=== PATIENT | male | born 1955 | race Caucasian/White ===

== ENCOUNTER 2016-10-29 19:42 | Emergency (ER) | payer OTHER ==
[~2016-10-29] VITALS: Ht 162.6 cm; Wt 100.0 kg
[~2016-10-29 19:42] MED LIST: ASPI-664 PO; ATOR80TA75 PO; CEPH500C PO; FENO160T13 PO; GABA300C PO; HYDR-3498 PO; ISOS60TA PO; Isosorbide Mononitrate PO; LISI-523 PO; METO10TA92 PO; METO50TA16 PO; RANO10002 PO
[2016-10-29 19:50] VITALS: Ht 162.6 cm; Wt 100.0 kg
--- NOTE | 2016-10-29 22:56 | ERD ---
ER Documentation Chief Complaint Date/Time DATE: 10/29/16 TIME: 22:42 Chief Complaint left leg pain x 2 days. 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 Patient denies any injury or trauma. He rates the pain at a 10 out of 10 constant throbbing pain. He states the pain is worse when bearing weight. He otherwise is able to ambulate well. He is currently on aspirin and clopidogrel. Patient denies any redness, fever, chest pain, shortness of breath , or dizziness. He denies any history of diabetes or high blood pressure. ROS All systems reviewed and are negative except as per history of present illness. Medications Home Meds Active Scripts Hydrocodone Bit-Acetaminophen* ([place]*) 5-325 Mg Tab, 1 TAB PO Q8 Y for SEVERE PAIN LEVEL 7-10, #30 TAB Prov:ALBERTO SMALLS MD 04/27/16 Cephalexin* (Cephalexin*) 500 Mg Capsule, 500 MG PO TID, #21 CAP Prov:ALBERTO SMALLS MD 04/27/16 Metoclopramide* (Reglan*) 10 Mg Tablet, 10 MG PO AC MEALS Y for NAUSEA AND OR VOMITING, #40 TAB Prov:ALBERTO SMALLS MD 12/11/15 Metoprolol Succinate* (Toprol XL*) 50 Mg Tabsr, 50 MG PO BID for 28 Days, BOT Prov:KARL SHARIF MD 11/08/15 Lisinopril* (Zestril*) 5 Mg Tab, 2.5 MG PO DAILY for 28 Days, TAB Prov:KARL SHARIF MD 11/08/15 Gabapentin* (Neurontin*) 300 Mg Cap, 300 MG PO BID for 28 Days, CAP Prov:KARL SHARIF MD 11/08/15 [Isosorbide Mononitrate] 60 MG TABSR No Conflict Check, 60 MG PO DAILY, TAB Prov:KARL SHARIF MD 09/12/15 Reported Medications Fenofibrate, Micronized* (Fenofibrate*) 160 Mg Tablet, 160 MG PO DAILY, TAB 08/19/15 Isosorbide Mononitrate* (Isosorbide Mononitrate*) 60 Mg Tab.er.24h, 60 MG PO DAILY, TAB 08/19/15 Atorvastatin* (Atorvastatin*) 80 Mg Tablet, 80 MG PO HS, TAB 08/19/15 Ranolazine* (Ranexa*) 1,000 Mg Tab.sr.12h, 1000 MG PO BID 11/11/12 Aspirin (Aspirin) 81 Mg Tablet.dr, 81 MG PO DAILY 11/11/12 Allergies Allergies: Coded Allergies: No Known Allergies (Verified Allergy, Unknown, 10/29/16) PMhx/Soc History of Surgery: Yes (s/p LLE popliteal aneurysm repair of profunda to anterior tibial) Anesthesia Reaction: No Hx Neurological Disorder: No Hx Respiratory Disorders: No Hx Cardiac Disorders: Yes (HTN, HIGH AB, pacemaker) Hx Psychiatric Problems: No Hx Miscellaneous Medical Probl: Yes (HTN, Hypercholesterolemia, PVD, ) Hx Alcohol Use: Yes Hx Substance Use: No Hx Tobacco Use: Yes Smoking Status: Current every day smoker Physical Exam Vitals Vital Signs Date Time Temp Pulse Resp B/P Pulse Ox O2 Delivery O2 Flow Rate FiO2 10/29/16 19:50 98.8 69 20 2/76 99 Physical Exam Const: Head: Atraumatic Eyes: Normal Conjunctiva ENT: Normal External Ears, Nose and Mouth. Neck: Full range of motion..~ No meningismus. Resp: Clear to auscultation bilaterally Cardio: Regular rate and rhythm, no murmurs Abd: Soft, non tender, non distended. Normal bowel sounds Skin: No petechiae or rashes Back: No midline or flank tenderness Ext: No cyanosis, or edema Neur: Awake and alert Psych: Normal Mood and Affect Result Diagram: 10/29/16225410/29/162254 Results 24 hrs Laboratory Tests Test 10/29/16 22:55 Activated Partial Thromboplast Time 27.4Sec Alanine Aminotransferase (ALT/SGPT) 23IU/L Albumin 4.9g/dl Albumin/Globulin Ratio 1.36 Alkaline Phosphatase 80IU/L Anion Gap 22 Aspartate Amino Transf (AST/SGOT) 22IU/L Basophils # 0.010^3/ul Basophils % 0.2% Blood Urea Nitrogen 18mg/dl Calcium Level 10.0mg/dl Carbon Dioxide Level 25mmol/L Chloride Level 102mmol/L Creatinine 1.09mg/dl Direct Bilirubin 0.00mg/dl Eosinophils # 0.110^3/ul Eosinophils % 0.8% Globulin 3.60g/dl Glucose Level 96mg/dl Hematocrit 40.6% Hemoglobin 13.6g/dl INR International Normalized Ratio 0.97 Indirect Bilirubin 0.3mg/dl Lymphocytes # 3.010^3/ul Lymphocytes % 26.3% Mean Corpuscular Hemoglobin 31.5pg Mean Corpuscular Hemoglobin Concent 33.6g/dl Mean Corpuscular Volume 93.7fl Mean Platelet Volume 7.7fl Monocytes # 0.910^3/ul Monocytes % 7.7% Neutrophils # 7.410^3/ul Neutrophils % 65.0% Nucleated Red Blood Cells # 0.010^3/ul Nucleated Red Blood Cells % 0.0/100WBC Platelet Count 27457^3/UL Potassium Level 4.2mmol/L Prothrombin Time 12.9Sec Prothrombin Time Ratio 1.0 Red Blood Count 4.3310^6/ul Red Cell Distribution Width 13.3% Sodium Level 145mmol/L Total Bilirubin 0.3mg/dl Total Protein 8.5g/dl Troponin I Pending White Blood Count 11.410^3/ul Current Medications Medications (Trade) Dose Ordered Sig/Scotty Route PRN Reason Start Time Stop Time Status Last Admin Dose Admin Acetaminophen/ Hydrocodone Bitart ([place] (10/325)) 1 tab ONCE ONCE PO 10/29/16 23:00 10/29/16 23:01 DC Procedures/MDM PROCEDURE: Ultrasound examination of the left lower extremity with Doppler. CLINICAL INDICATION: Left leg pain and swelling. TECHNIQUE: Multiple sonographic images of the left lower extremity veins were performed with alegre scale and color Doppler. COMPARISON: None. FINDINGS: The left common femoral, superficial femoral and popliteal veins demonstrate normal color flow, waveforms, compression and response to augmentation. There is no evidence of deep venous thrombosis. There is a complex, heterogeneous echogenicity surrounding the left popliteal vein graft measuring 5.2 x 3.1 x 5.0 cm with no vascularity demonstrated. IMPRESSION: No evidence of deep venous thrombosis within the left lower extremity. Hematoma surrounding the left popliteal graft measuring 5.2 x 3.1 x 5.0 cm. .Kofi Vargas MD, MD Date Time Electronically viewed and signed by .Kofi Vargas MD, MD on 10/29/2016 23:19 .T/ CC: MORENO LIMA PA-C 61-year-old male with extensive DVT history presents the emergency department with concern for left lower extremity pain. Ultrasound revealed evidence of a popliteal hematoma and no evidence of acute DVT. I recommended further diagnostic imaging including a CTA of the lower extremity although patient refused further testing and stated that he is being closely monitored by his vascular surgeon and recently received a CAT scan of the lower extremity which revealed the hematoma. Patient and family as well as surgeon are aware of this popliteal hematoma but stated they wanted to make sure he did not develop any new DVT. CBC unremarkable for anemia or leukocytosis. Patient instructed to follow-up with his vascular surgeon within the next week or return to the emergency department if he continues to have worsening pain, chest pain, shortness of breath, or calf redness. Patient supplied with a short course of [place] for pain control. Patient to continue clopidogrel as prescribed by his vascular surgeon. Based on patient's history of present illness and physical examination the decision was made to discharge. The patient was re-evaluated after ED treatment and stabilizing measures, and symptoms have improved. There is no evidence of life threatening injuries or illnesses at this time. On re-examination, patient resting in no distress, stable vital signs, reports feeling better and safe for discharge with outpatient follow up with PMD in 1-2 days. Patient given return precautions. MORENO LIMA PA-C Oct 29, 2016 22:56
[2016-10-29] MEDS ORDERED: HYDROCODONE/APAP (10/325) TAB PO ONE (23:00)
[2016-10-29 23:03] LABS: BASOPHILS % 0.2 % (0.0-2.0); EOSINOPHILS # 0.1 10^3/ul (0.0-0.5); EOSINOPHILS % 0.8 % (0.0-7.0); HEMATOCRIT 40.6 % (42.0-52.0); HEMOGLOBIN 13.6 g/dl (14.0-18.0); LYMPHOCYTES % 26.3 % (15.0-51.0); MEAN CORPUSCULAR HEMOGLOBIN 31.5 pg (29.0-33.0); MEAN CORPUSCULAR HGB CONC 33.6 g/dl (32.0-37.0); MEAN CORPUSCULAR VOLUME 93.7 fl (82.0-101.0); MEAN PLATELET VOLUME 7.7 fl (7.4-10.4); MONOCYTE # 0.9 10^3/ul (0.3-0.9); MONOCYTES % 7.7 % (0.0-11.0); NEUTROPHIL # 7.4 10^3/ul (1.6-7.5); PLATELET COUNT 341 10^3/UL (140-440); RED BLOOD COUNT 4.33 10^6/ul (4.70-6.10); RED CELL DISTRIBUTION WIDTH 13.3 % (11.5-14.5); UNCORRECTED WBC 11.4 10^3/ul (4.8-10.8); WHITE BLOOD COUNT 11.4 10^3/ul (4.8-10.8)
[2016-10-29 23:05] LABS: CONDITION 1
[2016-10-29 23:14] LABS: INR 0.97; PROTIME 12.9 Sec (12.2-14.2)
[2016-10-29 23:15] LABS: ALBUMIN 4.9 g/dl (3.3-4.9); CHLORIDE 102 mmol/L (97-110); PARTIAL THROMBOPLASTIN TIME 27.4 Sec (25.0-35.0); SODIUM 145 mmol/L (135-144)
[2016-10-29 23:16] LABS: POTASSIUM 4.2 mmol/L (3.5-5.1)
[2016-10-29 23:18] LABS: ALANINE AMINOTRANSFERASE 23 IU/L (13-69); ALBUMIN/GLOBULIN RATIO 1.36; ALKALINE PHOSPHATASE 80 IU/L (42-121); ANION GAP 22 (8-16); ASPARTATE AMINO TRANSFERASE 22 IU/L (15-46); BILIRUBIN,INDIRECT 0.3 mg/dl (0-1.1); BILIRUBIN,TOTAL 0.3 mg/dl (0.2-1.3); BLOOD UREA NITROGEN 18 mg/dl (7-20); CARBON DIOXIDE 25 mmol/L (21-31); CREATININE 1.09 mg/dl (0.61-1.24); GLUCOSE 96 mg/dl (70-220); TOTAL PROTEIN 8.5 g/dl (6.1-8.1)
--- NOTE | 2016-10-29 23:19 | RADRPT ---
PROCEDURE: Ultrasound examination of the left lower extremity with Doppler. CLINICAL INDICATION: Left leg pain and swelling. TECHNIQUE: Multiple sonographic images of the left lower extremity veins were performed with alegre scale and color Doppler. COMPARISON: None. FINDINGS: The left common femoral, superficial femoral and popliteal veins demonstrate normal color flow, wave forms, compression and response to augmentation. There is no evidence of deep venous thrombosis. There is a complex, heterogeneous echogenicity surrounding the left popliteal vein graft measuring 5 .2 x 3.1 x 5.0 cm with no vascularity demonstrated. IMPRESSION: No evidence of deep venous thrombosis within the left lower extremity. Hematoma surrounding the left popliteal graft measuring 5.2 x 3.1 x 5.0 cm. .Kofi Vargas MD, MD Date Time Electronically viewed and signed by .Kofi Vargas MD, MD on 10/29/2016 23:19 .T/
[2016-10-29 23:36] LABS: TROPONIN-I < 0.012 ng/ml (0.00-0.12)
[2016-10-29] MEDS ORDERED: HYDR-902 PO (23:42)
[2016-10-29 23:48] VITALS: BP 160/76; PULSE 70; RESP 18; TEMP 98.2
== END 2016-10-29 23:49 | disposition home or self-care (01) ==
LOC: FTE 19:42
DX: M79.662 Pain in left lower leg (principal); I10 Essential (primary) hypertension; F17.210 Nicotine dependence, cigarettes, uncomplicated; Z79.82 Long term (current) use of aspirin; Z95.0 Presence of cardiac pacemaker
CPT/HCPCS: 80053; 84484; 85025; 85610; 85730; 93971

== ENCOUNTER 2016-11-18 06:01 | Inpatient (IN) | payer OTHER ==
[2016-11-17 10:36] VITALS: BMI 36.0
[2016-11-18] VITALS (30 sets, daily range): BP systolic 90–165; BP diastolic 55–73; PULSE 56–71; RESP 6–22; Ht 157.5 cm; Wt 97.7 kg
[~2016-11-18] VITALS: Ht 157.5 cm; Wt 97.7 kg
[~2016-11-18 06:01] MED LIST changes: +HYDR-902 PO
[2016-11-18] MEDS ORDERED: CEFAZOLIN 2 GM/50 ML (PMX) 50 ML IVPB SCH (07:00)
[2016-11-18] MEDS ORDERED: HEPARIN 1000 UNITS/ML 10 ML INJ ONE (07:07)
[2016-11-18] MEDS ORDERED: GELATIN SIZE 100 SPONGE ONE (07:07)
[2016-11-18] MEDS ORDERED: THROMBIN 5000 UNIT VIAL ONE (07:08)
--- NOTE | 2016-11-18 07:17 | HPN ---
Date/Time of Note Date/Time of Note DATE: 11/18/16 TIME: 07:15 Interval H&P Admission Note Pt. seen H&P reviewed: No system changes KARL SMILEY MD Nov 18, 2016 07:17
[2016-11-18] MEDS ORDERED: MIDAZOLAM 1 MG/ML 2 ML INJ ONE (07:41)
[2016-11-18] MEDS ORDERED: DEXTRAN-40 10%/D5W 500 ML, HEPARIN 1,000 UNIT, PAPAVERINE 120 MG IV SCH ×3 (08:00)
[2016-11-18] MEDS ORDERED: PHENYLephrine (100 MCG/ML) 5ML SYG ONE (08:00)
[2016-11-18] MEDS ORDERED: CEFAZOLIN 1 GM INJ ONE ×2 (08:33→11:22)
[2016-11-18] MEDS ORDERED: morphine 10 MG INJ ONE (08:49)
[2016-11-18] MEDS ORDERED: morphine (1 MG/ML) 10ML SYRINGE IV PRN ×2 (09:00)
[2016-11-18] MEDS ORDERED: hydrALAzine 20 MG INJ IV PRN ×2 (09:00→13:00)
[2016-11-18] MEDS ORDERED: MEPERIDINE 25 MG INJ IV PRN (09:00)
[2016-11-18] MEDS ORDERED: FENTAnyl 50 MCG/ML VIAL IV PRN (09:00)
[2016-11-18] MEDS ORDERED: ONDANSETRON 4 MG INJ IV PRN ×2 (09:00→13:30)
[2016-11-18] MEDS ORDERED: DIPHENHYDRAMINE 50 MG INJ IV PRN (09:00)
[2016-11-18] MEDS ORDERED: LABETALOL HCL 20MG INJ IV PRN (09:00)
[2016-11-18] MEDS ORDERED: ONDANSETRON 4 MG INJ ONE (11:21)
[2016-11-18] MEDS ORDERED: ROCURONIUM 50 MG INJ ONE (11:22)
[2016-11-18] MEDS ORDERED: ETOMIDATE 20 MG INJ ONE (11:22)
[2016-11-18] MEDS ORDERED: LIDOCAINE 2% (SDV) 5 ML INJ ONE (11:22)
[2016-11-18] MEDS: HEPARIN 5,000 UNIT/0.5 ML SYG SC SCH ×2 (13:18→21:54)
[2016-11-18] MEDS ORDERED: ZOLPIDEM 5 MG TAB PO PRN (13:30)
[2016-11-18] MEDS ORDERED: ACETAMINOPHEN 650MG/20.3ML CUP PO PRN (13:30)
[2016-11-18] MEDS ORDERED: morphine 2 MG INJ IV PRN (13:30)
[2016-11-18] MEDS ORDERED: LORAZEPAM 2 MG INJ IV PRN (13:30)
[2016-11-18] MEDS ORDERED: MAGNESIUM HYDROXIDE 30ML CUP PO PRN (13:30)
[2016-11-18] MEDS ORDERED: ALBUTEROL 0.5% (NEB) 2.5 MG/0.5 ML AMP NEB PRN (13:30)
[2016-11-18] MEDS ORDERED: NACL 0.9% 3 ML SYG IV SCH (13:30)
[2016-11-18] MEDS ORDERED: ACETAMINOPHEN 325 MG TAB PO PRN (13:30)
[2016-11-18] MEDS ORDERED: DOCUSATE SODIUM 100 MG CAP PO PRN (13:30)
[2016-11-18] MEDS ORDERED: IPRATROPIUM (NEB) 0.5 MG/2.5 ML AMP NEB PRN (13:30)
[2016-11-18] MEDS: CEFAZOLIN 2 GM/50 ML (PMX) 50 ML IVPB SCH ×3 (14:00→21:53)
--- NOTE | 2016-11-18 14:01 | HP ---
DATE OF ADMISSION: 11/18/2016 HISTORY OF PRESENT ILLNESS: The patient is a 61-year-old gentleman with history of peripheral vascu lar disease, ischemic cardiomyopathy, coronary artery disease, hypertension, hyperlipidemia, and obe sity. The patient was diagnosed with left popliteal artery aneurysm and was brought to the hospital and underwent excision of left popliteal aneurysm and removal of the stent from left popliteal bonny ry by Dr. Bentley. Postoperatively the patient had some significant postoperative pain and was ad mitted for further evaluation and management to intensive care unit. The patient denies any nausea, vomiting. The patient is lethargic, but easily arousable, was able to provide some limited history and most of the history was obtained from medical records and talking to the patient and patient's family. The patient denies any fever, chills. Denies nausea, vomiting, diarrhea, constipation. PAST MEDICAL HISTORY: Per HPI. PAST SURGICAL HISTORY: Status post permanent pacemaker for ventricular tachycardia. Status post ca rdiac angiography in January 2016 which revealed coronary artery disease present with no significant s tenosis to be revascularized. Status post right transmetatarsal amputation. FAMILY HISTORY: Noncontributory. SOCIAL HISTORY: The patient is a former heavy smoker. The patient stated he quit 10 years ago. Th e patient drinks alcohol occasionally. Denies any illicit drug use. Lives with family. ALLERGIES: NO KNOWN ALLERGIES. HOME MEDICATIONS: 1. Aspirin. 2. Lipitor. 3. Keflex. 4. Gabapentin. 5. [place]. 6. Imdur. 7. Lisinopril. 8. Reglan p.r.n. 9. Toprol-XL. 10. Ranexa. 11. Fenofibrate. REVIEW OF SYSTEMS: A 12-point review of systems is negative unless what is mentioned in the HPI. PHYSICAL ASSESSMENT: GENERAL: Well-developed, obese male currently is lethargic status post surgery, status post anesthe vi; however, arousable, awake, alert, and oriented to name and situation. VITAL SIGNS: Temperature is 98.3, pulse is 68, blood pressure is 117/73, respiratory rate 16, oxyge n saturation 99% on 4 L nasal cannula. HEENT: Head is atraumatic, normocephalic. Pupils equal, round, reactive to light and accommodation . Oral mucosa is pink and moist. NECK: Supple, no cervical lymphadenopathy, no thyromegaly. CHEST: Lungs clear bilaterally. There is no rhonchi, wheezes, rales noted. CARDIOVASCULAR: Normal S1, S2. The patient has a left chest permanent pacemaker. ABDOMEN: Protuberant, soft, nondistended, nontender. Bowel sounds hypoactive. There is no guardin g, no rebound tenderness. EXTREMITIES: Left lower extremity status post surgery. Right extremity status post transmetatarsal amputation. Pulses present bilaterally, lower extremities warm to touch. SKIN: There is no rash, petechiae noted. NEUROLOGIC: The patient is awake, alert, and oriented x3, no focal deficits noted. Motor strength is 5/5 in all extremities. LABORATORY DATA PRIOR TO ADMISSION: CBC: White blood cells 8.23, hemoglobin 13.1, hematocrit 38.1, platelets 320. Chemistry: Sodium is 138, potassium 4.3, chloride 103, carbon dioxide 26, anion ga p 13, glucose 110, BUN is 18, creatinine 1.14. ASSESSMENT AND PLAN: 1. 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 Bentley. Continue to f ollow up surgical recommendation. Continue ICU care. 2. Coronary artery disease. Continue patient on Plavix, Ranexa, and Imdur. 3. Hypertension. Continue lisinopril and metoprolol. 4. Hyperlipidemia. Continue atorvastatin. We are going to continue gentle IV fluids. 5. Ischemic cardiomyopathy with ejection fraction of 25%. Will continue gentle IV fluids. Monitor electrolytes. Continue morphine p.r.n. for pain and Zofran p.r.n. for nausea. Advance diet as pat ient tolerates to a 2 g sodium, low fat, low cholesterol diet. Continue postoperative antibiotics a nd heparin. Monitor electrolytes. Further recommendations based on clinical course. Plan of care discussed with Dr. Mai. Dictated By: NITO SHAHID WINDLACE MACHINE OPERATOR for JORDANA MAI MD SR/NTS Conf#: [id number] DID#: [id number]
[2016-11-18] MEDS: FENOFIBRATE 145 MG TAB PO SCH (14:21)
--- NOTE | 2016-11-18 15:44 | PN ---
Date/Time of Note Date/Time of Note DATE: 11/18/16 TIME: 15:39 Assessment/Plan Lines/Catheters IV Catheter Type (from Nrs): Central Line [place] in Place (from Nrs): Yes Assessment/Plan Chief Complaint/Hosp Course LLE atherosclerosis and popliteal artery aneurysm: S/P popliteal artery aneurysm resection and removal of stent graft -Continue IVF hydration and advance Diet as tolerated. Hep lock if tolerating diet -Monitor strict I&O's -PT/OT - FWB and OOB -DVT PPX -Incentive Spirometer -Discussed findings, plan and manage,ent wit the patient and he understands -Thank you for allowing us to partake in the care of your patient, please call with any questions Problems: Subjective 24 Hr Interval Summary pt resting comfortably Exam/Review of Systems Vital Signs Vitals Vital Signs Date Time Temp Pulse Resp B/P Pulse Ox O2 Delivery O2 Flow Rate FiO2 11/18/16 15:00 56 11 150/65 98 Nasal Cannula 11/18/16 14:00 2.0 11/18/16 13:00 98.6 Exam Free Text/Dictation A&O x3 CTAb S1S2 present Soft NTND BS+ LLE: Palpable graft at the knee, mototr/sensory intact, cap refill 2-3 seconds, posterior knee incision with dressing intact and dry KARL SMILEY MD Nov 18, 2016 15:44
[2016-11-18] MEDS: HYDROCODONE/APAP (5/325) TAB PO PRN ×2 (16:44→22:48)
[2016-11-18] MEDS: ATORVASTATIN 80 MG TAB PO SCH (21:09)
[2016-11-18] MEDS: RANOLAZINE (SR) 500 MG TAB PO SCH (21:09)
[2016-11-19] VITALS (17 sets, daily range): BP systolic 120–174; BP diastolic 58–78; PULSE 64–106; RESP 12–28
[2016-11-19] MEDS: PANTOPRAZOLE 40 MG INJ IV SCH (06:00)
[2016-11-19 06:05] LABS: BASOPHILS % 0.1 % (0.0-2.0); EOSINOPHILS # 0.1 10^3/ul (0.0-0.5); EOSINOPHILS % 0.7 % (0.0-7.0); HEMATOCRIT 33.7 % (42.0-52.0); HEMOGLOBIN 11.6 g/dl (14.0-18.0); LYMPHOCYTES # 1.5 10^3/ul (0.8-2.9); LYMPHOCYTES % 17.4 % (15.0-51.0); MEAN CORPUSCULAR HEMOGLOBIN 31.8 pg (29.0-33.0); MEAN CORPUSCULAR HGB CONC 34.5 g/dl (32.0-37.0); MEAN CORPUSCULAR VOLUME 92.2 fl (82.0-101.0); MEAN PLATELET VOLUME 8.1 fl (7.4-10.4); MONOCYTE # 0.6 10^3/ul (0.3-0.9); MONOCYTES % 7.4 % (0.0-11.0); NEUTROPHIL # 6.4 10^3/ul (1.6-7.5); NEUTROPHILS % 74.4 % (39.0-77.0); PLATELET COUNT 247 10^3/UL (140-440); RED BLOOD COUNT 3.66 10^6/ul (4.70-6.10); RED CELL DISTRIBUTION WIDTH 12.8 % (11.5-14.5); UNCORRECTED WBC 8.6 10^3/ul (4.8-10.8); WHITE BLOOD COUNT 8.6 10^3/ul (4.8-10.8)
[2016-11-19] MEDS: CEFAZOLIN 2 GM/50 ML (PMX) 50 ML IVPB SCH ×3 (06:14→21:54)
[2016-11-19] MEDS: HEPARIN 5,000 UNIT/0.5 ML SYG SC SCH ×3 (06:15→21:56)
[2016-11-19 06:34] LABS: CONDITION 1
[2016-11-19] MEDS: HYDROCODONE/APAP (5/325) TAB PO PRN ×3 (06:54→18:41)
[2016-11-19 07:11] LABS: POTASSIUM 3.7 mmol/L (3.5-5.1)
[2016-11-19 07:14] LABS: CREATININE 0.77 mg/dl (0.61-1.24)
[2016-11-19 07:15] LABS: CALCIUM 8.9 mg/dl (8.4-10.2)
--- NOTE | 2016-11-19 07:45 | PN ---
Date/Time of Note Date/Time of Note DATE: 11/19/16 TIME: 07:42 Assessment/Plan Lines/Catheters IV Catheter Type (from Nrs): Central Line [place] in Place (from Nrs): Yes Assessment/Plan Chief Complaint/Hosp Course -LLE atherosclerosis and popliteal artery aneurysm: S/P popliteal artery aneurysm resection and removal of stent graft -Continue IVF hydration and advance Diet as tolerated. Hep lock if tolerating diet -Transfer to Telemetry with Neurovascular checks [id number] -D/C [place] -D/C A-line -PT/OT - FWB and OOB -DVT PPX -Incentive Spirometer -Discussed findings, plan and manage,ent wit the patient and he understands -Thank you for allowing us to partake in the care of your patient, please call with any questions Problems: Subjective 24 Hr Interval Summary no new vascular issues overnight, incisional tenderness Exam/Review of Systems Vital Signs Vitals Vital Signs Date Time Temp Pulse Resp B/P Pulse Ox O2 Delivery O2 Flow Rate FiO2 11/19/16 06:00 78 13 141/78 97 Room Air 11/19/16 05:00 98.4 11/18/16 15:58 2.0 Intake and Output 11/18/16 11/18/16 11/19/16 15:00 23:00 07:00 Intake Total 1850 ml 100 ml Output Total 445 ml 515 ml 580 ml Balance 1405 ml -415 ml -580 ml Exam Free Text/Dictation A&O x3 CTAB S1S2 present Soft NTND BS+ LLE: Palpable graft at the knee, motor/sensory intact, cap refill 2-3 seconds, posterior knee incision with dressing intact and dry Results Result Diagram: 11/19/16 0500 11/19/16 0500 KARL SMILEY MD Nov 19, 2016 07:45
[2016-11-19] MEDS ORDERED: NITROGLYCERIN (SL) 0.4 MG TAB ONE (07:47)
[2016-11-19] MEDS ORDERED: METOPROLOL 5 MG INJ ONE (07:49)
[2016-11-19] MEDS ORDERED: NITROGLYCERIN (SL) 0.4 MG TAB SL PRN (08:00)
[2016-11-19] MEDS ORDERED: METOPROLOL 5 MG INJ IV ONE (08:00)
[2016-11-19 08:42] LABS: CREATINE KINASE 114 IU/L (23-200)
[2016-11-19] MEDS: FENOFIBRATE 145 MG TAB PO SCH (08:48)
[2016-11-19] MEDS: ISOSORBIDE MONONITRATE(SR)60 MG TAB PO SCH (08:48)
[2016-11-19] MEDS: ASPIRIN (EC) 81 MG TAB PO SCH (08:48)
[2016-11-19] MEDS: RANOLAZINE (SR) 500 MG TAB PO SCH ×2 (08:48→21:16)
[2016-11-19] MEDS: LISINOPRIL 5 MG TAB PO SCH (08:49)
[2016-11-19 08:52] LABS: CK-MB 0.44 ng/ml (0.0-2.4)
[2016-11-19 08:58] LABS: TROPONIN-I < 0.012 ng/ml (0.00-0.12)
[2016-11-19] MEDS: METOPROLOL 100 MG TAB PO SCH (09:00)
--- NOTE | 2016-11-19 11:10 | PN ---
Date/Time of Note Date/Time of Note DATE: 11/19/16 TIME: 11:07 Assessment/Plan VTE Prophylaxis VTE Prophylaxis Intervention: other Lines/Catheters IV Catheter Type (from [facility]): Central Line Urinary Cath still in place: Yes Assessment/Plan Assessment/Plan 1. 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 Bentley. Continue to follow up surgical recommendation. Continue ICU care. 2. Coronary artery disease. Continue patient on Plavix, Ranexa, and Imdur. 3. Hypertension. Continue lisinopril and metoprolol. 4. Hyperlipidemia. Continue atorvastatin. We are going to continue gentle IV fluids. 5. Ischemic cardiomyopathy with ejection fraction of 25%. Will continue gentle IV fluids. Monitor electrolytes. Continue morphine p.r.n. for pain and Zofran p.r.n. for nausea. Advance diet as patient tolerates to a 2 g sodium, low fat, low cholesterol diet. Continue postoperative antibiotics and heparin. Monitor electrolytes. Further recommendations based on clinical course. Total critical care time spent is 35 mins.Plan of care discussed with Dr. Mai. Subjective 24 Hr Interval Summary Free Text/Dictation NAD, no chest pain at present, family at bed side-alll Q answered,dw staff Constitutional: improved Eyes: no complaints ENT: no complaints Respiratory: no complaints Cardiovascular: no complaints Gastrointestinal: no complaints Genitourinary: no complaints Musculoskeletal: no complaints Skin: no complaints Neurologic: no complaints Endocrine: no complaints Lymphatic: no complaints Psychological: nl mood/affect Immunologic: no complaints Exam/Review of Systems Vital Signs Vitals Vital Signs Date Time Temp Pulse Resp B/P Pulse Ox O2 Delivery O2 Flow Rate FiO2 11/19/16 10:00 94 28 132/77 95 Room Air 11/19/16 08:00 98.3 11/18/16 15:58 2.0 Intake and Output 11/18/16 11/18/16 11/19/16 15:00 23:00 07:00 Intake Total 1850 ml 100 ml Output Total 445 ml 515 ml 580 ml Balance 1405 ml -415 ml -580 ml Exam Constitutional: alert, oriented, well developed Psych: no complaints Head: atraumatic Eyes: EOMI, PERRL, nl sclera ENMT: nl external ears & nose Neck: non-tender Respiratory: clear to auscultation Cardiovascular: nl pulses Gastrointestinal: non-tender, soft Musculoskeletal: other Extremities: normal pulses Neurological: nl mental status Lymph: nl lymph nodes Results Result Diagram: 11/19/16 0500 11/19/16 0500 Results 24 hrs Laboratory Tests Test 11/18/16 13:50 11/19/16 05:00 11/19/16 08:05 Phosphorus Level 3.8 Anion Gap 19 H Basophils # 0.0 Basophils % 0.1 Blood Urea Nitrogen 10 Calcium Level 8.9 Carbon Dioxide Level 23 Chloride Level 104 Creatinine 0.77 Eosinophils # 0.1 Eosinophils % 0.7 Glucose Level 103 Hematocrit 33.7 L Hemoglobin 11.6 L Lymphocytes # 1.5 Lymphocytes % 17.4 Mean Corpuscular Hemoglobin 31.8 Mean Corpuscular Hemoglobin Concent 34.5 Mean Corpuscular Volume 92.2 Mean Platelet Volume 8.1 Monocytes # 0.6 Monocytes % 7.4 Neutrophils # 6.4 Neutrophils % 74.4 Nucleated Red Blood Cells # 0.0 Nucleated Red Blood Cells % 0.0 Platelet Count 247 # Potassium Level 3.7 Red Blood Count 3.66 L Red Cell Distribution Width 12.8 Sodium Level 142 White Blood Count 8.6 # Creatine Kinase 114 Creatine Kinase Index 0.4 Creatinine Kinase MB (Mass) 0.44 Troponin I < 0.012 Medications Medications Current Medications Dextran/Dextrose 500 ml/Heparin Sodium (Porcine) 1000 unit/ Papaverine HCl 120 mg INTRA-OP IV ; Start 11/18/16 at 08:00 Cefazolin Sodium/ Dextrose (Ancef 2 Gm/50 ml (Pmx)) 50 ml @ 100 mls/hr Q8 IVPB Last administered on 11/19/16 06:14; Admin Dose 100 MLS/HR; Start 11/18/16 at 14:00 Heparin Sodium (Porcine) (Heparin (5000 Units/0.5 ml)) 5,000 unit Q8 SC Last administered on 11/19/16 06:15; Admin Dose 5,000 UNIT; Start 11/18/16 at 14:00 Aspirin (Halfprin) 81 mg DAILY PO Last administered on 11/19/16 08:48; Admin Dose 81 MG; Start 11/19/16 at 09:00 Atorvastatin Calcium (Lipitor) 80 mg HS PO Last administered on 11/18/16 21:09 ; Admin Dose 80 MG; Start 11/18/16 at 21:00 Isosorbide Mononitrate (Imdur) 60 mg DAILY PO Last administered on 11/19/16 08: 48; Admin Dose 60 MG; Start 11/19/16 at 09:00 Lisinopril (Zestril) 2.5 mg DAILY PO Last administered on 11/19/16 08:49; Admin Dose 2.5 MG; Start 11/19/16 at 09:00 Ranolazine (Ranexa) 1,000 mg BID PO Last administered on 11/19/16 08:48; Admin Dose 1,000 MG; Start 11/18/16 at 21:00 Fenofibrate (Tricor) 145 mg DAILY PO Last administered on 11/19/16 08:48; Admin Dose 145 MG; Start 11/18/16 at 14:00 Metoprolol Tartrate (Lopressor) 100 mg DAILY PO ; Start 11/19/16 at 09:00 Hydralazine HCl (Apresoline) 10 mg Q6H PRN IV SBP>170; Start 11/18/16 at 13:00 Ondansetron HCl (Zofran Inj) 4 mg Q6H PRN IV NAUSEA AND/OR VOMITING; Start 11/18 at 13:30 Acetaminophen (Tylenol Liquid) 650 mg Q6H PRN PO PAIN LEVEL 1-3 OR FEVER; Start 11/18/16 at 13:30 Acetaminophen (Tylenol Tab) 650 mg Q6H PRN PO PAIN LEVEL 1-3 OR FEVER; Start at 13:30 Acetaminophen/ Hydrocodone Bitart ([place] (5/325)) 1 tab Q6H PRN PO PAIN LEVEL 4 -6 Last administered on 11/19/16 06:54; Admin Dose 1 TAB; Start 11/18/16 at 13:30 Morphine Sulfate (morphine) 2 mg Q4H PRN IV PAIN LEVEL 7-10 Last administered on 11/19/16 02:59; Admin Dose 2 MG; Start 11/18/16 at 13:30 Lorazepam (Ativan) 1 mg Q2H PRN IV ANXIETY; Start 11/18/16 at 13:30 Zolpidem Tartrate (Ambien) 5 mg QHS PRN PO INSOMNIA; Start 11/18/16 at 13:30 Docusate Sodium (Colace) 100 mg Q12H PRN PO CONSTIPATION; Start 11/18/16 at 13: 30 Magnesium Hydroxide (Milk Of Mag) 30 ml DAILY PRN PO CONSTIPATION; Start at 13:30 Pantoprazole (Protonix Iv) 40 mg DAILY@06 IV ; Start 11/19/16 at 06:00 Nitroglycerin (Nitroglycerin (Sl Tab) 0.4 Mg) 1 tab Q5M PRN SL ANGINA Last administered on 11/19/16t 08:20; Admin Dose 1 TAB; Start 11/19/16 at 08:00 JAY CAMILO Nov 19, 2016 11:09
--- NOTE | 2016-11-19 11:50 | RADRPT ---
Vent Rate: 104 bpm RR Interval: 0 msec LA Interval: 166 msec QRS Duration: 120 msec QT Interval: 372 msec QTC Interval: 489 msec P-R-T [place]: 27 - 52 - 88 degrees Sinus tachycardia Cannot rule out Anterior infarct , age undetermined Abnormal ECG Electronically Signed By: Hima Gonzalez [id number]
[2016-11-19 14:11] LABS: CK-MB 0.58 ng/ml (0.0-2.4)
[2016-11-19 14:15] LABS: TROPONIN-I 0.013 ng/ml (0.00-0.12)
--- NOTE | 2016-11-19 17:27 | PN ---
Date/Time of Note Date/Time of Note DATE: 11/19/16 TIME: 17:22 Assessment/Plan VTE Prophylaxis VTE Prophylaxis Intervention: other Lines/Catheters IV Catheter Type (from Nrsg): Central Line Central line still needed: Yes Urinary Cath still in place: Yes Reason Cath still needed: other (indicate) Assessment/Plan Chief Complaint/Hosp Course ASSESSMENT AND PLAN: 1. 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 Bentley. d/w dr zheng 2. hx Coronary artery disease. Continue patient on Plavix, Ranexa, and Imdur. 3. Hypertension. 4. Hyperlipidemia. 5.hx Ischemic cardiomyopathy with ejection fraction of 25%. plan per dr garcia Problems: Subjective 24 Hr Interval Summary Constitutional: no complaints Eyes: no complaints ENT: no complaints Respiratory: no complaints Cardiovascular: no complaints, No chest pain Gastrointestinal: no complaints Genitourinary: no complaints Musculoskeletal: no complaints, restricted range of motion (+) Neurologic: no complaints Exam/Review of Systems Vital Signs Vitals Vital Signs Date Time Temp Pulse Resp B/P Pulse Ox O2 Delivery O2 Flow Rate FiO2 11/19/16 16:00 87 11/19/16 16:00 18 122/72 97 Room Air 11/19/16 12:00 98.6 11/18/16 15:58 2.0 Intake and Output 11/18/16 11/18/16 11/19/16 15:00 23:00 07:00 Intake Total 1850 ml 100 ml Output Total 445 ml 515 ml 580 ml Balance 1405 ml -415 ml -580 ml Exam Neck: supple Respiratory: clear to auscultation Cardiovascular: regular rate and rhythm Gastrointestinal: bowel sounds (+), soft, No distended, No hepatomegaly Musculoskeletal: nl extremities to inspection Extremities: calf tenderness (+), edema (+) Results Result Diagram: 11/19/16 0500 11/19/16 0500 Results 24 hrs Laboratory Tests Test 11/19/16 05:00 11/19/16 08:05 11/19/16 13:35 Anion Gap 19 H Basophils # 0.0 Basophils % 0.1 Blood Urea Nitrogen 10 Calcium Level 8.9 Carbon Dioxide Level 23 Chloride Level 104 Creatinine 0.77 Eosinophils # 0.1 Eosinophils % 0.7 Glucose Level 103 Hematocrit 33.7 L Hemoglobin 11.6 L Lymphocytes # 1.5 Lymphocytes % 17.4 Mean Corpuscular Hemoglobin 31.8 Mean Corpuscular Hemoglobin Concent 34.5 Mean Corpuscular Volume 92.2 Mean Platelet Volume 8.1 Monocytes # 0.6 Monocytes % 7.4 Neutrophils # 6.4 Neutrophils % 74.4 Nucleated Red Blood Cells # 0.0 Nucleated Red Blood Cells % 0.0 Platelet Count 247 # Potassium Level 3.7 Red Blood Count 3.66 L Red Cell Distribution Width 12.8 Sodium Level 142 White Blood Count 8.6 # Creatine Kinase 114 119 Creatine Kinase Index 0.4 0.5 Creatinine Kinase MB (Mass) 0.44 0.58 Troponin I < 0.012 0.013 Medications Medications Current Medications Dextran/Dextrose 500 ml/Heparin Sodium (Porcine) 1000 unit/ Papaverine HCl 120 mg INTRA-OP IV ; Start 11/18/16 at 08:00 Cefazolin Sodium/ Dextrose (Ancef 2 Gm/50 ml (Pmx)) 50 ml @ 100 mls/hr Q8 IVPB Last administered on 11/19/16 13:31; Admin Dose 100 MLS/HR; Start 11/18/16 at 14:00 Heparin Sodium (Porcine) (Heparin (5000 Units/0.5 ml)) 5,000 unit Q8 SC Last administered on 11/19/16 13:35; Admin Dose 5,000 UNIT; Start 11/18/16 at 14:00 Aspirin (Halfprin) 81 mg DAILY PO Last administered on 11/19/16 08:48; Admin Dose 81 MG; Start 11/19/16 at 09:00 Atorvastatin Calcium (Lipitor) 80 mg HS PO Last administered on 11/18/16 21:09 ; Admin Dose 80 MG; Start 11/18/16 at 21:00 Isosorbide Mononitrate (Imdur) 60 mg DAILY PO Last administered on 11/19/16 08: 48; Admin Dose 60 MG; Start 11/19/16 at 09:00 Lisinopril (Zestril) 2.5 mg DAILY PO Last administered on 11/19/16 08:49; Admin Dose 2.5 MG; Start 11/19/16 at 09:00 Ranolazine (Ranexa) 1,000 mg BID PO Last administered on 11/19/16 08:48; Admin Dose 1,000 MG; Start 11/18/16 at 21:00 Fenofibrate (Tricor) 145 mg DAILY PO Last administered on 11/19/16 08:48; Admin Dose 145 MG; Start 11/18/16 at 14:00 Metoprolol Tartrate (Lopressor) 100 mg DAILY PO ; Start 11/19/16 at 09:00 Hydralazine HCl (Apresoline) 10 mg Q6H PRN IV SBP>170; Start 11/18/16 at 13:00 Ondansetron HCl (Zofran Inj) 4 mg Q6H PRN IV NAUSEA AND/OR VOMITING; Start 11/18 at 13:30 Acetaminophen (Tylenol Liquid) 650 mg Q6H PRN PO PAIN LEVEL 1-3 OR FEVER; Start 11/18/16 at 13:30 Acetaminophen (Tylenol Tab) 650 mg Q6H PRN PO PAIN LEVEL 1-3 OR FEVER; Start at 13:30 Acetaminophen/ Hydrocodone Bitart ([place] (5/325)) 1 tab Q6H PRN PO PAIN LEVEL 4 -6 Last administered on 11/19/16 12:55; Admin Dose 1 TAB; Start 11/18/16 at 13:30 Morphine Sulfate (morphine) 2 mg Q4H PRN IV PAIN LEVEL 7-10 Last administered on 11/19/16 02:59; Admin Dose 2 MG; Start 11/18/16 at 13:30 Lorazepam (Ativan) 1 mg Q2H PRN IV ANXIETY; Start 11/18/16 at 13:30 Zolpidem Tartrate (Ambien) 5 mg QHS PRN PO INSOMNIA; Start 11/18/16 at 13:30 Docusate Sodium (Colace) 100 mg Q12H PRN PO CONSTIPATION; Start 11/18/16 at 13: 30 Magnesium Hydroxide (Milk Of Mag) 30 ml DAILY PRN PO CONSTIPATION; Start at 13:30 Pantoprazole (Protonix Iv) 40 mg DAILY@06 IV ; Start 11/19/16 at 06:00 Nitroglycerin (Nitroglycerin (Sl Tab) 0.4 Mg) 1 tab Q5M PRN SL ANGINA Last administered on 11/19/16 08:20; Admin Dose 1 TAB; Start 11/19/16 at 08:00 KARL SHARIF MD Nov 19, 2016 17:27
--- NOTE | 2016-11-19 19:58 | CONS ---
Date/Time of Note Date/Time of Note DATE: 11/19/16 TIME: 19:54 Assessment/Plan Assessment/Plan Chief Complaint/Hosp Course The trops are neg x 2 Problems: Additional Assessment/Plan The pt will need the 3rd trop to be checked The pt will be started on Digoxin and if the 3rd trop is negative, he may be able to go to the tele floor. Consultation Date/Type/Reason Admit Date/Time Nov 18, 2016 at 06:01 Reason for Consultation chest pain Referring Provider: KARL SMILEY MD Hx of Present Illness The patient is a 61-year-old gentleman with history of peripheral vascular disease, ischemic cardiomyopathy, coronary artery disease, hypertension, hyperlipidemia, and obesity. The patient was diagnosed with left popliteal artery aneurysm and was brought to the hospital and underwent excision of left popliteal aneurysm and removal of the stent from left popliteal artery by Dr. Smiley. Postoperatively the patient had some significant postoperative pain and was admitted for further evaluation and management to intensive care unit. The patient denies any nausea, vomiting. The patient denies any fever, chills. Denies nausea, vomiting, diarrhea, constipation. Today, the pt had some chest pain, and sob, and sinus tach. The pt had 2 neg trops, the ECG was borderline for ST elevation, kept him in the ICU for the 3rd trop. NO CP now. Constitutional: no complaints Eyes: no complaints ENT: no complaints Respiratory: no complaints Cardiovascular: no complaints, No chest pain Gastrointestinal: no complaints Genitourinary: no complaints Musculoskeletal: no complaints, restricted range of motion (+) Skin: no complaints Neurologic: no complaints Endocrine: no complaints Lymphatic: no complaints Psychological: no complaints Immunologic: no complaints Past Surgical History Past Surgical Hx: abd aortic aneurysmectomy, coronary bypass surgery, other Social History Smoking Status: Unknown if ever smoked Exam/Review of Systems Vital Signs Vitals Vital Signs Date Time Temp Pulse Resp B/P Pulse Ox O2 Delivery O2 Flow Rate FiO2 11/19/16 16:00 87 11/19/16 16:00 18 122/72 97 Room Air 11/19/16 12:00 98.6 11/18/16 15:58 2.0 Intake and Output 11/18/16 11/18/16 11/19/16 14:59 22:59 06:59 Intake Total 1800 ml 150 ml Output Total 410 ml 465 ml 665 ml Balance 1390 ml -315 ml -665 ml Results Result Diagram: 11/19/16 0500 11/19/16 0500 Results 24 hrs Laboratory Tests Test 11/19/16 05:00 11/19/16 08:05 11/19/16 13:35 Anion Gap 19 H Basophils # 0.0 Basophils % 0.1 Blood Urea Nitrogen 10 Calcium Level 8.9 Carbon Dioxide Level 23 Chloride Level 104 Creatinine 0.77 Eosinophils # 0.1 Eosinophils % 0.7 Glucose Level 103 Hematocrit 33.7 L Hemoglobin 11.6 L Lymphocytes # 1.5 Lymphocytes % 17.4 Mean Corpuscular Hemoglobin 31.8 Mean Corpuscular Hemoglobin Concent 34.5 Mean Corpuscular Volume 92.2 Mean Platelet Volume 8.1 Monocytes # 0.6 Monocytes % 7.4 Neutrophils # 6.4 Neutrophils % 74.4 Nucleated Red Blood Cells # 0.0 Nucleated Red Blood Cells % 0.0 Platelet Count 247 # Potassium Level 3.7 Red Blood Count 3.66 L Red Cell Distribution Width 12.8 Sodium Level 142 White Blood Count 8.6 # Creatine Kinase 114 119 Creatine Kinase Index 0.4 0.5 Creatinine Kinase MB (Mass) 0.44 0.58 Troponin I < 0.012 0.013 Medications Medications Current Medications Dextran/Dextrose 500 ml/Heparin Sodium (Porcine) 1000 unit/ Papaverine HCl 120 mg INTRA-OP IV ; Start 11/18/16 at 08:00 Cefazolin Sodium/ Dextrose (Ancef 2 Gm/50 ml (Pmx)) 50 ml @ 100 mls/hr Q8 IVPB Last administered on 11/19/16 13:31; Admin Dose 100 MLS/HR; Start 11/18/16 at 14:00 Heparin Sodium (Porcine) (Heparin (5000 Units/0.5 ml)) 5,000 unit Q8 SC Last administered on 11/19/16 13:35; Admin Dose 5,000 UNIT; Start 11/18/16 at 14:00 Aspirin (Halfprin) 81 mg DAILY PO Last administered on 11/19/16 08:48; Admin Dose 81 MG; Start 11/19/16 at 09:00 Atorvastatin Calcium (Lipitor) 80 mg HS PO Last administered on 11/18/16 21:09 ; Admin Dose 80 MG; Start 11/18/16 at 21:00 Isosorbide Mononitrate (Imdur) 60 mg DAILY PO Last administered on 11/19/16 08: 48; Admin Dose 60 MG; Start 11/19/16 at 09:00 Lisinopril (Zestril) 2.5 mg DAILY PO Last administered on 11/19/16 08:49; Admin Dose 2.5 MG; Start 11/19/16 at 09:00 Ranolazine (Ranexa) 1,000 mg BID PO Last administered on 11/19/16 08:48; Admin Dose 1,000 MG; Start 11/18/16 at 21:00 Fenofibrate (Tricor) 145 mg DAILY PO Last administered on 11/19/16 08:48; Admin Dose 145 MG; Start 11/18/16 at 14:00 Metoprolol Tartrate (Lopressor) 100 mg DAILY PO ; Start 11/19/16 at 09:00 Hydralazine HCl (Apresoline) 10 mg Q6H PRN IV SBP>170; Start 11/18/16 at 13:00 Ondansetron HCl (Zofran Inj) 4 mg Q6H PRN IV NAUSEA AND/OR VOMITING; Start 11/18 at 13:30 Acetaminophen (Tylenol Liquid) 650 mg Q6H PRN PO PAIN LEVEL 1-3 OR FEVER; Start 11/18/16 at 13:30 Acetaminophen (Tylenol Tab) 650 mg Q6H PRN PO PAIN LEVEL 1-3 OR FEVER; Start at 13:30 Acetaminophen/ Hydrocodone Bitart ([place] (5/325)) 1 tab Q6H PRN PO PAIN LEVEL 4 -6 Last administered on 11/19/16 18:41; Admin Dose 1 TAB; Start 11/18/16 at 13:30 Morphine Sulfate (morphine) 2 mg Q4H PRN IV PAIN LEVEL 7-10 Last administered on 11/19/16 02:59; Admin Dose 2 MG; Start 11/18/16 at 13:30 Lorazepam (Ativan) 1 mg Q2H PRN IV ANXIETY; Start 11/18/16 at 13:30 Zolpidem Tartrate (Ambien) 5 mg QHS PRN PO INSOMNIA; Start 11/18/16 at 13:30 Docusate Sodium (Colace) 100 mg Q12H PRN PO CONSTIPATION; Start 11/18/16 at 13: 30 Magnesium Hydroxide (Milk Of Mag) 30 ml DAILY PRN PO CONSTIPATION; Start at 13:30 Pantoprazole (Protonix Iv) 40 mg DAILY@06 IV ; Start 11/19/16 at 06:00 Nitroglycerin (Nitroglycerin (Sl Tab) 0.4 Mg) 1 tab Q5M PRN SL ANGINA Last administered on 11/19/16t 08:20; Admin Dose 1 TAB; Start 11/19/16 at 08:00 JAG BARGER MD Nov 19, 2016 19:58
[2016-11-19] MEDS ORDERED: DIGOXIN 0.25 MG TAB PO ONE ×2 (20:00→22:00)
--- NOTE | 2016-11-19 20:20 | OPR ---
DATE OF OPERATION: 11/18/2016 SURGEON: Karl Bentley MD PREOPERATIVE DIAGNOSIS: Left popliteal artery aneurysm measuring 5.5 cm. POSTOPERATIVE DIAGNOSIS: Left popliteal artery aneurysm measuring 5.5 cm. COMPLICATIONS: None. HEPARIN: None. SPECIMEN: 1. Popliteal artery aneurysm sac. 2. Viabahn stent graft. TRANSFUSIONS: None. BLOOD LOSS: Minimal. ANESTHESIA: General endotracheal intubation. INDICATIONS: This is a 61-year-old gentleman with a longstanding history of abdominal aortic aneury sm and bilateral lower extremity popliteal artery aneurysms. The patient had underwent bilateral lo wer extremity revascularizations. However, over the past few months, the patient had developed sign ificant left lower extremity rest pain and difficulty with his ambulation secondary to the popliteal artery aneurysm size compressing on his sciatic nerve, specifically in the area of the posterior kn ee. After discussing the risks, benefits and alternatives with the patient, he agreed to proceed wi th the procedure. The risks and benefits were discussed and not limited to , CO, stroke, pneum onia, thrombosis of the graft, possible future revisions, infections, nerve injury, loss of lower ex tremity and the patient has agreed to proceed. DESCRIPTION OF PROCEDURE: The patient was brought into the operating room table and general anesthe vi was induced and patient underwent endotracheal intubation. The patient tolerated that part well . Further, he had an arterial catheter placement and central catheter placement. Doan catheter wa s placed under sterile conditions. Preoperative antibiotics were given. At this point, patient was turned into prone position and all normal bony prominences were padded appropriately. At this poin t, the patient's left lower extremity was circumferentially prepped and draped in usual standard arun rile fashion. Using marking pen, an S-shaped incision was drawn over the posterior aspect of the kn ee. Using 15 blade, a skin incision was made in an S-like fashion. Using electrocautery, we went a head and dissected through the subcutaneous tissue up to the fascia. The fascia was then excised wi th Metzenbaum scissors. At this point, careful attention was paid not to come in close contact with the sciatic nerve and the tibial nerve branches. The popliteal artery aneurysm sac was then identi fied in the medial aspect of the incision. Careful attention was also made to identify the poplitea l vein. At this point, with careful dissection, we were able to isolate the popliteal artery aneury sm. At this point, the aneurysm seemed to be thrombosed and was checked for any other perfusion to it, which was not identified. It was not pulsatile. At this point, the popliteal artery aneurysm sac arteriotomy was performed. The mural thrombus and atherosclerotic plaque was removed. The Viabahn stent graft was then identified. At this point, th e Viabahn stent graft was attempted to be removed proximal and distally. Distally there was still a small amount of the stent graft that was not able to be removed as it went further distally toward the trifurcation of the tibials. Therefore, using sharp scissors it was transected and the distal a spect of the below knee popliteal artery was ligated using a 2-0 silk suture. On the proximal aspec t, the majority of the stent graft was removed up to the above knee popliteal artery and using sharp scissors that was also excised. Using 2-0 silk suture, the proximal aspect of the above knee popli teal artery was ligated. At this point, the genicular arteries were checked for any back bleeding a nd they were also clipped. At this point, the aneurysmal sac was excised and fully dissected free f rom all of the surrounding structures and removed. At this point, the wound was irrigated with saline solution and confirmed for adequate hemostasis. At this point, using a 3-0 Vicryl suture in a running fashion, and the fascia was closed. Interrupt ed Vicryl suture was then used to close the dermal layer of the wound. Using a 3-0 Monocryl suture, the skin incision was. Sterile dressing was applied. The patient was then taken to the postanesth esia care unit in stable condition. All instrument, sponge, needles were correct x2. At this point , the patient was then turned to supine position. Bilateral lower extremity grafts were checked and confirmed to be patent. Dictated By: KARL OCASIO/VANDANA Conf#: [id number] DID#: [id number]
[2016-11-19] MEDS: ATORVASTATIN 80 MG TAB PO SCH (20:27)
[2016-11-19 20:50] LABS: CREATINE KINASE 107 IU/L (23-200)
[2016-11-19 21:01] LABS: CK-MB 0.63 ng/ml (0.0-2.4)
[2016-11-19 21:07] LABS: TROPONIN-I < 0.012 ng/ml (0.00-0.12)
[2016-11-20] VITALS (7 sets, daily range): BP systolic 118–176; BP diastolic 58–79; PULSE 67–101; RESP 18–89
[2016-11-20] MEDS: HYDROCODONE/APAP (5/325) TAB PO PRN ×3 (00:31→12:11)
[2016-11-20] MEDS: CEFAZOLIN 2 GM/50 ML (PMX) 50 ML IVPB SCH (05:42)
[2016-11-20] MEDS: HEPARIN 5,000 UNIT/0.5 ML SYG SC SCH (05:44)
[2016-11-20] MEDS: PANTOPRAZOLE 40 MG INJ IV SCH (05:51)
[2016-11-20] MEDS ORDERED: DIGOXIN 0.25 MG TAB PO ONE (06:00)
[2016-11-20 08:18] LABS: ADD SCAN DIFF NO
[2016-11-20 08:44] LABS: ALBUMIN 3.7 g/dl (3.3-4.9); POTASSIUM 3.3 mmol/L (3.5-5.1)
[2016-11-20 08:46] LABS: CREATININE 0.76 mg/dl (0.61-1.24)
[2016-11-20 08:47] LABS: ALBUMIN/GLOBULIN RATIO 1.23; BILIRUBIN,INDIRECT 0.1 mg/dl (0-1.1); BILIRUBIN,TOTAL 0.1 mg/dl (0.2-1.3); CALCIUM 8.8 mg/dl (8.4-10.2); TOTAL PROTEIN 6.7 g/dl (6.1-8.1)
[2016-11-20] MEDS: LISINOPRIL 5 MG TAB PO SCH (09:22)
[2016-11-20] MEDS: METOPROLOL 100 MG TAB PO SCH (09:22)
[2016-11-20] MEDS: ASPIRIN (EC) 81 MG TAB PO SCH (09:22)
[2016-11-20] MEDS: RANOLAZINE (SR) 500 MG TAB PO SCH (09:22)
[2016-11-20] MEDS: FENOFIBRATE 145 MG TAB PO SCH (09:22)
[2016-11-20] MEDS: ISOSORBIDE MONONITRATE(SR)60 MG TAB PO SCH (09:23)
[2016-11-20 10:24] LABS: BASOPHILS % 0.1 % (0.0-2.0); EOSINOPHILS % 0.3 % (0.0-7.0); HEMOGLOBIN 10.9 g/dl (14.0-18.0); LYMPHOCYTES # 1.8 10^3/ul (0.8-2.9); LYMPHOCYTES % 20.2 % (15.0-51.0); MEAN CORPUSCULAR HEMOGLOBIN 31.3 pg (29.0-33.0); MEAN CORPUSCULAR HGB CONC 34.1 g/dl (32.0-37.0); MEAN PLATELET VOLUME 10.3 fl (7.4-10.4); MONOCYTE # 0.9 10^3/ul (0.3-0.9); MONOCYTES % 9.6 % (0.0-11.0); NEUTROPHIL # 6.2 10^3/ul (1.6-7.5); NEUTROPHILS % 69.4 % (39.0-77.0); PLATELET COUNT 238 10^3/UL (140-415); RED BLOOD COUNT 3.48 10^6/ul (4.70-6.10); RED CELL DISTRIBUTION WIDTH 12.5 % (11.5-14.5)
[2016-11-20] MEDS ORDERED: POTASSIUM CHLORIDE 20 MEQ POWDER FOR ORAL SOLN PO ONE (11:00)
--- NOTE | 2016-11-20 11:05 | PN ---
Date/Time of Note Date/Time of Note DATE: 11/20/16 TIME: 11:04 Assessment/Plan VTE Prophylaxis VTE Prophylaxis Intervention: SCD's Lines/Catheters IV Catheter Type (from Nrs): Central Line Central line still needed: Yes Urinary Cath still in place: No Assessment/Plan Chief Complaint/Hosp Course ASSESSMENT AND PLAN: 1. 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 Bentley. Continue to follow up surgical recommendation. Continue ICU care. 2. Coronary artery disease. Continue patient on Plavix, Ranexa, and Imdur. 3. Hypertension. Continue lisinopril and metoprolol. 4. Hyperlipidemia. Continue atorvastatin. We are going to continue gentle IV fluids. 5. Ischemic cardiomyopathy with ejection fraction of 25%. Will continue gentle IV fluids. Monitor electrolytes. 6. Postoperative shortness of breath and chest pain. Patient is followed by Dr. Ibrahim in cardiology consultation Continue morphine p.r.n. for pain and Zofran p.r.n. for nausea. Advance diet as patient tolerates to a 2 g sodium, low fat, low cholesterol diet. Continue postoperative antibiotics and heparin. Monitor electrolytes. Further recommendations based on clinical course. Plan of care discussed with Dr. Mai. Problems: Exam/Review of Systems Vital Signs Vitals Vital Signs Date Time Temp Pulse Resp B/P Pulse Ox O2 Delivery O2 Flow Rate FiO2 11/20/16 08:20 78 11/20/16 07:48 98.5 20 133/68 95 11/19/16 22:00 Room Air 11/18/16 15:58 2.0 Intake and Output 11/19/16 11/19/16 11/20/16 15:00 23:00 07:00 Intake Total 50 ml 400 ml 340 ml Output Total 350 ml 400 ml Balance -300 ml 400 ml -60 ml Results Result Diagram: 11/20/16 0808 11/20/16 0808 Results 24 hrs Laboratory Tests Test 11/19/16 13:35 11/19/16 20:30 11/20/16 08:08 Creatine Kinase 119 107 Creatine Kinase Index 0.5 0.6 Creatinine Kinase MB (Mass) 0.58 0.63 Troponin I 0.013 < 0.012 Alanine Aminotransferase (ALT/SGPT) 20 Albumin 3.7 Albumin/Globulin Ratio 1.23 Alkaline Phosphatase 73 Anion Gap 16 Aspartate Amino Transf (AST/SGOT) 18 Basophils # 0.0 Basophils % 0.1 Blood Urea Nitrogen 7 Calcium Level 8.8 Carbon Dioxide Level 25 Chloride Level 103 Creatinine 0.76 Direct Bilirubin 0.00 Eosinophils # 0.0 Eosinophils % 0.3 Globulin 3.00 Glucose Level 110 Hematocrit 32.0 L Hemoglobin 10.9 L Indirect Bilirubin 0.1 Lymphocytes # 1.8 Lymphocytes % 20.2 Mean Corpuscular Hemoglobin 31.3 Mean Corpuscular Hemoglobin Concent 34.1 Mean Corpuscular Volume 92.0 Mean Platelet Volume 10.3 # Monocytes # 0.9 Monocytes % 9.6 Neutrophils # 6.2 Neutrophils % 69.4 Nucleated Red Blood Cells # 0.0 Nucleated Red Blood Cells % 0.0 Platelet Count 238 Potassium Level 3.3 L Red Blood Count 3.48 L Red Cell Distribution Width 12.5 Sodium Level 141 Total Bilirubin 0.1 L Total Protein 6.7 White Blood Count 9.0 Medications Medications Current Medications Cefazolin Sodium/ Dextrose (Ancef 2 Gm/50 ml (Pmx)) 50 ml @ 100 mls/hr Q8 IVPB Last administered on 11/20/16 05:42; Admin Dose 100 MLS/HR; Start 11/18/16 at 14:00 Heparin Sodium (Porcine) (Heparin (5000 Units/0.5 ml)) 5,000 unit Q8 SC Last administered on 11/20/16 05:44; Admin Dose 5,000 UNIT; Start 11/18/16 at 14:00 Aspirin (Halfprin) 81 mg DAILY PO Last administered on 11/20/16 09:22; Admin Dose 81 MG; Start 11/19/16 at 09:00 Atorvastatin Calcium (Lipitor) 80 mg HS PO Last administered on 11/19/16 20:27 ; Admin Dose 80 MG; Start 11/18/16 at 21:00 Isosorbide Mononitrate (Imdur) 60 mg DAILY PO Last administered on 11/20/16 09 :23; Admin Dose 60 MG; Start 11/19/16 at 09:00 Lisinopril (Zestril) 2.5 mg DAILY PO Last administered on 11/20/16 09:22; Admin Dose 2.5 MG; Start 11/19/16 at 09:00 Ranolazine (Ranexa) 1,000 mg BID PO Last administered on 11/20/16 09:22; Admin Dose 1,000 MG; Start 11/18/16 at 21:00 Fenofibrate (Tricor) 145 mg DAILY PO Last administered on 11/20/16 09:22; Admin Dose 145 MG; Start 11/18/16 at 14:00 Metoprolol Tartrate (Lopressor) 100 mg DAILY PO Last administered on 11/20/16 09:22; Admin Dose 100 MG; Start 11/19/16 at 09:00 Hydralazine HCl (Apresoline) 10 mg Q6H PRN IV SBP>170; Start 11/18/16 at 13:00 Ondansetron HCl (Zofran Inj) 4 mg Q6H PRN IV NAUSEA AND/OR VOMITING; Start 11/18 at 13:30 Acetaminophen (Tylenol Liquid) 650 mg Q6H PRN PO PAIN LEVEL 1-3 OR FEVER; Start 11/18/16 at 13:30 Acetaminophen (Tylenol Tab) 650 mg Q6H PRN PO PAIN LEVEL 1-3 OR FEVER; Start at 13:30 Acetaminophen/ Hydrocodone Bitart ([place] (5/325)) 1 tab Q6H PRN PO PAIN LEVEL 4 -6 Last administered on 11/20/16 05:56; Admin Dose 1 TAB; Start 11/18/16 at 13: 30 Morphine Sulfate (morphine) 2 mg Q4H PRN IV PAIN LEVEL 7-10 Last administered on 11/19/16 02:59; Admin Dose 2 MG; Start 11/18/16 at 13:30 Lorazepam (Ativan) 1 mg Q2H PRN IV ANXIETY; Start 11/18/16 at 13:30 Zolpidem Tartrate (Ambien) 5 mg QHS PRN PO INSOMNIA; Start 11/18/16 at 13:30 Docusate Sodium (Colace) 100 mg Q12H PRN PO CONSTIPATION; Start 11/18/16 at 13: 30 Magnesium Hydroxide (Milk Of Mag) 30 ml DAILY PRN PO CONSTIPATION; Start at 13:30 Pantoprazole (Protonix Iv) 40 mg DAILY@06 IV ; Start 11/19/16 at 06:00 Nitroglycerin (Nitroglycerin (Sl Tab) 0.4 Mg) 1 tab Q5M PRN SL ANGINA Last administered on 11/19/16t 08:20; Admin Dose 1 TAB; Start 11/19/16 at 08:00 Digoxin (Digoxin) 0.25 mg DAILY@13 PO ; Start 11/21/16 at 13:00 NITO SHAHID Nov 20, 2016 11:05
--- NOTE | 2016-11-20 11:59 | PDOCDIS ---
Discharge Instructions CONDITION Patient Condition: Stable HOME CARE INSTRUCTIONS: Special Diet: Cardiac ACTIVITY: Activity Restrictions: Slowly Increase Activity FOLLOW UP/APPOINTMENTS Appointments f/u pcp [address] montelongo [address] marce price 1 wk KARL SHARIF MD Nov 20, 2016 11:59
[2016-11-20] MEDS ORDERED: NIT4 SL (12:03)
[2016-11-20] MEDS ORDERED: DIGO250T PO (12:03)
[2016-11-20] MEDS ORDERED: METO-407 PO (12:03)
--- NOTE | 2016-11-20 12:05 | PDOCDIS ---
Discharge Instructions CONDITION Patient Condition: Stable HOME CARE INSTRUCTIONS: Special Diet: Cardiac ACTIVITY: Activity Restrictions: Slowly Increase Activity FOLLOW UP/APPOINTMENTS Appointments see dr head 1 wk KARL SHARIF MD Nov 20, 2016 12:05
[2016-11-21] MEDS ORDERED: DIGOXIN 0.25 MG TAB PO SCH (13:00)
== END 2016-11-20 13:00 | disposition home or self-care (01) | DRG 253 ==
LOC: REC 06:01 → ICU 11:35 → TEL 11-19 23:25
PROVIDERS: ADMIT Student in an Organized Health Care Education/Training Program; ATTEND Internal Medicine
PROC: 04CN0ZZ Extirpation of Matter from Left Popliteal Artery, Open Approach (ICD-10-PCS; 2016-11-18)
PROC: 04BN0ZZ Excision of Left Popliteal Artery, Open Approach (ICD-10-PCS; principal; 2016-11-18 07:30)
DX: I72.4 Aneurysm of artery of lower extremity (principal); I74.3 Embolism and thrombosis of arteries of the lower extremities; Z95.0 Presence of cardiac pacemaker; Z89.431 Acquired absence of right foot; I73.9 Peripheral vascular disease, unspecified; I25.5 Ischemic cardiomyopathy; I10 Essential (primary) hypertension; E78.5 Hyperlipidemia, unspecified; Z68.39 Body mass index [BMI] 39.0-39.9, adult; Z87.891 Personal history of nicotine dependence; I25.10 Atherosclerotic heart disease of native coronary artery without angina pectoris; Z79.02 Long term (current) use of antithrombotics/antiplatelets; R06.02 Shortness of breath; R07.9 Chest pain, unspecified; I70.202 Unspecified atherosclerosis of native arteries of extremities, left leg; I25.2 Old myocardial infarction; Z95.1 Presence of aortocoronary bypass graft; E66.01 Morbid (severe) obesity due to excess calories
CPT/HCPCS: 80048; 80053; 82550; 82553; 84100; 84484; 85025; 86850; 86900; 86901; 86920; 87081; 88300; 88304; 93005; 93306; 97163; J0690; J1644; J2250; J2270; J2370; J2405; J2440; J3010

== ENCOUNTER → 2017-08-17 | Outpatient (CLI) | payer OTHER ==
[~2017-08-17] MED LIST changes: -CEPH500C PO; +DIGO250T PO; -HYDR-902 PO; +IOHEXOL 100 ML ONE; +IOHEXOL 350MG/ML 50 ML BTL ONE; +METO-319 PO; +METO-407 PO; -METO50TA16 PO; +NIT4 SL; +SOD CHLORIDE 0.9% 100 ML ONE
--- NOTE | 2017-08-17 11:04 | RADRPT ---
PROCEDURE: CT angiogram of the abdomen and pelvis with bilateral lower extremity runoff and with 3 -D reconstructions CLINICAL INDICATION: RIGHT LEG PAIN TECHNIQUE: CT angiogram of the abdomen and pelvis with lower extremity runoff was performed on a [employer] CT scanner . The patient was scanned after administration of intravenous contrast (100 cc of Omnipaque 350). Sagittal and coronal reformatted images were obtained from the axial source millie ges. 3D MIP reformatted images were also created from the axial source images. DLP 1898.77 mGycm CTDI vol 8.22, 123.23, 13.95 mGy One or more of the following dose reduction techniques were used: - Automated exposure control. - Adjustment of the mA and/or kV according to patient size. - Use of iterative reconstruction technique. COMPARISON: None FINDINGS: ANGIOGRAM: There is no acute dissection or aneurysm of the abdominal aorta. The celiac, SMA, and MILLIE are widely patent. The right hepatic artery is replaced off the SMA. There are single renal arteries bilaterally which are widely patent. Aortobi-iliac stent graft repair of the infrarenal aorta is noted. There is proximal fixation at the level of the renal arteries with distal fixation in bilateral common iliac arteries. The maximum di mensions of the infrarenal aorta are 2.9 x 2.8 cm. There is no evidence of an endoleak. The right limb of the bypass graft in the common iliac artery is widely patent. The right internal a nd external iliac arteries are patent. There is aneurysmal dilatation of the left common iliac arter y which is traversed by the distal limb of the stent graft. The aneurysm measures up to 2.9 cm and t here is crescentic mural thrombus along the posteromedial aspect of the aneurysm, particularly dista lly for a comprises approximately 80% of the luminal area of the distal left common iliac artery. RIGHT LOWER EXTREMITY: There is mild narrowing of the distal right common femoral artery. The right profunda artery is widely patent. The [place]iat[place] right superficial femoral and popliteal arteries are occluded. An occluded aneurysm of th e mid right popliteal artery measuring approximately 4.5 x 3.7 cm is noted. There is a bypass graft noted extending from the distal right common femoral artery in the superfici al soft tissues of the medial thigh to the proximal right posterior tibial artery. Contrast is noted to flow retrograde via the right posterior tibial artery to the tibioperoneal trunk where reestabli sh as flow in the right peroneal and anterior tibial arteries. There is three-vessel uninterrupted r unoff to the right ankle. Numerous dilated and tortuous varicosities and deep veins in the right lower extremity are noted fro m the thigh to the ankle. LEFT LOWER EXTREMITY: There is mild narrowing of the left common femoral artery. The [place] left superficial femoral artery is occluded. There is an occluded stent in the left proxi mal to mid popliteal artery. The remainder of the left popliteal artery is also occluded including a stent in its distal portion below the knee. The left profunda artery is widely patent. There is a bypass graft which extends from the left profu nda artery via the anterolateral superficial soft tissues of the left thigh to connect to the proxim al left anterior tibial artery which reestablish as flow retrograde to the bifurcation of the tibiop eroneal trunk. The left anterior tibial, posterior tibial, and peroneal arteries are patent along th eir entire course. Patent dorsalis pedis and posterior tibial arteries are noted below the ankle. ANCILLARY: There is a 1.4 cm calculus in the midpole of the right kidney. No left renal calculi are identified. There is no hydronephrosis bilaterally. There are colonic diverticula without evidence of diverticulitis. 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 IMPRESSION: Status post aortobi-iliac stent graft repair of the infrarenal aorta without evidence of aneurysmal dilatation or an endoleak. 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 Crescentic mural thrombus is noted within this aneurysmal segment which increases a s 1 progresses distally, comprising 80% of the luminal area just proximal to the bifurcation. Chronic total occlusion of the right superficial femoral artery with a bypass graft noted extending from the right common femoral artery to the right posterior tibial artery which reestablishes flow v ia the tibioperoneal trunk to the peroneal and anterior tibial arteries. There is three-vessel unint errupted runoff to the right ankle. Numerous dilated and tortuous varicosities and deep veins are noted in the right lower extremity. Status post right midfoot amputation. Chronic total occlusion of the left superficial femoral artery with a bypass graft noted from the pr oximal left profunda artery to the left anterior tibial artery which reestablishes flow via the dist al tibioperoneal trunk to the peroneal and posterior tibial arteries. There is three-vessel uninterr upted runoff to the left ankle. 1.4 cm nonobstructing right renal calculus. No hydronephrosis bilaterally. RPTAT: EE Samir Ponce Physician Date Time Electronically viewed and signed by Samir Ponce Physician on 08/17/2017 11:04 RA/
== END | disposition home or self-care (01) ==
LOC: C/S 09:24
PROVIDERS: ATTEND Student in an Organized Health Care Education/Training Program
DX: M79.661 Pain in right lower leg (principal)
CPT/HCPCS: 75635; Q9967; Z7610

== ENCOUNTER 2017-09-28 05:50 | Observation (INO) | payer OTHER ==
[~2017-09-28] VITALS: Ht 157.5 cm; Wt 108.1 kg
[2017-09-28] VITALS (22 sets, daily range): BP systolic 103–144; BP diastolic 58–77; PULSE 73–89; RESP 12–20; Ht 157.5 cm; Wt 108.1 kg
[~2017-09-28 05:50] MED LIST changes: +CEFAZOLIN 2 GM/50 ML (PMX) 50 ML IVPB ONE; -IOHEXOL 100 ML ONE; -IOHEXOL 350MG/ML 50 ML BTL ONE; -NIT4 SL; +NITR0.4T39 SL; -SOD CHLORIDE 0.9% 100 ML ONE
[2017-09-28] MEDS ORDERED: ONDANSETRON 4 MG INJ IV PRN (06:30)
[2017-09-28] MEDS ORDERED: DIPHENHYDRAMINE 50 MG INJ IV PRN (06:30)
[2017-09-28] MEDS ORDERED: MIDAZOLAM 1 MG/ML 2 ML INJ IV PRN (06:30)
[2017-09-28] MEDS ORDERED: NEOSTIGMINE 3 MG/3 ML SYRINGE ONE (06:30)
[2017-09-28] MEDS ORDERED: HYDROmorphONE (0.2 MG/ML) 10ML SYG IV PRN ×3 (06:30)
[2017-09-28] MEDS ORDERED: MEPERIDINE 25 MG INJ IV PRN (06:30)
[2017-09-28] MEDS ORDERED: FENTAnyl 50 MCG/ML VIAL ONE (06:30)
[2017-09-28] MEDS ORDERED: FENTAnyl 50 MCG/ML VIAL IV PRN ×2 (06:30)
[2017-09-28] MEDS ORDERED: PROPOFOL 20 ML ONE (06:30)
[2017-09-28] MEDS ORDERED: GLYCOPYRROLATE 1 MG INJ ONE (06:30)
[2017-09-28] MEDS ORDERED: MIDAZOLAM 1 MG/ML 2 ML INJ ONE (06:30)
[2017-09-28] MEDS ORDERED: EPHEDrine SULFATE 50 MG/5 ML SYG IV PRN (06:30)
[2017-09-28] MEDS ORDERED: ROCURONIUM 50 MG INJ ONE (06:30)
[2017-09-28] MEDS ORDERED: morphine (1 MG/ML) 10ML SYRINGE IV PRN ×3 (06:30)
[2017-09-28] MEDS ORDERED: hydrALAzine 20 MG INJ IV PRN (06:30)
[2017-09-28] MEDS ORDERED: LABETALOL HCL 20MG INJ IV PRN (06:30)
[2017-09-28] MEDS ORDERED: ATROPINE 1 MG/10 ML SYRINGE IV PRN (06:30)
[2017-09-28] MEDS ORDERED: OXYCODONE/ACETAMINOPHEN (5/325) TAB PO PRN ×2 (06:30)
[2017-09-28] MEDS ORDERED: LIDOCAINE 2% (SDV) 5 ML INJ ONE (06:30)
[2017-09-28] MEDS ORDERED: DEXAMETHASONE 4 MG/ML 1 ML INJ ONE (06:33)
[2017-09-28] MEDS ORDERED: ONDANSETRON 4 MG INJ ONE (06:34)
[2017-09-28] MEDS ORDERED: CEFAZOLIN 1 GM INJ ONE (07:00)
[2017-09-28] MEDS ORDERED: GELATIN SIZE 100 SPONGE ONE (07:02)
[2017-09-28] MEDS ORDERED: HEPARIN 1000 UNITS/ML 10 ML INJ ONE ×2 (07:02→08:59)
[2017-09-28] MEDS ORDERED: THROMBIN 5000 UNIT VIAL ONE (07:02)
[2017-09-28] MEDS ORDERED: DUTA0.5C PO (07:05)
[2017-09-28] MEDS ORDERED: CLOP75TA27 PO (07:05)
--- NOTE | 2017-09-28 07:36 | HPN ---
Date/Time of Note Date/Time of Note DATE: 09/28/17 TIME: 07:36 Interval H&P Admission Note Pt. seen H&P reviewed: No system changes KARL SMILEY MD Sep 28, 2017 07:36
[2017-09-28] MEDS ORDERED: IOHEXOL 300MG/ML 150 ML BTL ONE (07:48)
[2017-09-28] MEDS ORDERED: LIDOCAINE 1% (MPF) 30 ML INJ ONE (07:53)
--- NOTE | 2017-09-28 10:48 | SIPON ---
Date/Time of Note Date/Time of Note DATE: 09/28/17 TIME: 10:44 Operative Report Preoperative Diagnosis LEFT ILIAC ARTERY ANEURYSM AND THROMBOSIS Postoperative Diagnosis SAME Operation/Procedure Performed AORTOILIAC ANGIOGRAM LEFT COMMON ILIAC & EXTERNAL ILIAC ARTERY STENTING & ANGIOPLASTY BILATERAL LOWER EXTREMITY ANGIOGRAM Surgeon see signature line operator assistant i cementing DR. ROSALIE SMILEY Anesthesia: moderate sedation Estimated blood loss: 10 - 50 ml's Transfusion Required none Specimen NONE Grafts/Implants none Complications none KARL SMILEY MD Sep 28, 2017 10:47
--- NOTE | 2017-09-28 11:45 | OPR ---
DATE OF OPERATION: 09/28/2017 SURGEON: Heladio Smiley MD CABINET ASSEMBLER: Wally Smiley MD PREOPERATIVE DIAGNOSES: Abdominal aortic aneurysm, bilateral popliteal artery aneurysm, left common iliac artery aneurysm, severe left common iliac artery stenosis. POSTOPERATIVE DIAGNOSIS: Abdominal aortic aneurysm, bilateral popliteal artery aneurysm, left commo n iliac artery aneurysm, severe left common iliac artery stenosis. ANESTHESIA: Local with moderate sedation. ESTIMATED BLOOD LOSS: Minimal. COMPLICATIONS: None. HEPARIN: 10,000 units intravenously. CONTRAST: As recorded. ACCESS: Right common femoral artery, 6-Greenlandic sheath, left common femoral artery, 12-Greenland[place] sheath. INDICATIONS: This is a 62-year-old gentleman with past medical history of abdominal aortic aneurysm and bilateral popliteal artery aneurysms and left common iliac artery aneurysms. In the past, maco ent underwent a previous left lower extremity fem-pop stent grafting for his popliteal artery aneury sm; however, he had an episode of thrombosis. Subsequent to that, he underwent thrombectomy and joanna ntually was scheduled for an elective profunda to anterior tibial artery reverse greater saphenous v ein bypass. Further, the patient had EVAR done in the past which we have been following and has bee n coming along well except upon his new CT angiography, it was identified the patient's left common iliac artery in the distal limb of his endovascular intervention, he had developed a significant jennifer unt of mural thrombus with severe stenosis right at the bifurcation of the iliac artery with the int ernal and external iliac. Patient also has had a history of right popliteal artery aneurysm in [facility] he underwent a right common femoral artery to posterior tibial artery in situ bypass. After much discussions with the patient, it was decided to bring the patient in for aortoiliac angiogram and il iac stent grafting and realignment of his endovascular intervention. Therefore, the patient was dis cussed with alternatives, risk and benefits and all that is involved and has agreed to proceed. The patient understood all the risks that are involved and also agreed to proceed. The risks included but not limited to bleeding, thrombosis, embolization, myocardial infarction, , stroke, device malfunction, infection, nephrotoxicity, limb loss, buttock claudication, ischemic bowel, and the pat ient has agreed to proceed. PROCEDURE: 1. Ultrasound-guided access of the right common femoral artery. Ultrasound-guided access of the le ft common femoral artery, second order selection of the hypogastric artery. 2. Bilateral lower extremity angiogram. 3. Left common iliac artery stent grafting with [place] excluder endoprosthesis limb at 12 cm x 14 cm 4. Left external iliac artery stent grafting with [place] excluder endoprosthesis 10 x 7 cm limb. 5. Fluoroscopy (22.5 minutes). FINDINGS: 1. Aortoiliac endograft is patent. The right common iliac and right external iliac arteries are pa tent. Right common femoral artery is patent and the right lower extremity bypass is patent, and rig ht profunda femoral artery is patent. 2. Left common iliac artery is patent, except at the distal aspect where the patient has an aneurys m and gradually it becomes severely stenosed right at the bifurcation of its internal and external i liac vessels. 3. Severe proximal left external iliac artery stenosis. 4. Severe left internal iliac artery stenosis in the proximal aspect. 5. Post intervention patent left common iliac artery. 6. Patent left external iliac artery. 7. Patent left common femoral artery. 8. Patent left lower extremity bypass. DESCRIPTION OF PROCEDURE: The patient was brought into the operating room and positioned in supine position on the operating room table. Moderate sedation and appropriate lines were obtained and adm inistered without any complications. Timeout was performed, appropriate sites were marked and confi rmed. Perioperative antibiotics were given. The bilateral groins and abdomen were shaved, prepped and draped in usual standard sterile fashion. Using the local anesthesia, 1% lidocaine was infiltra william in the region of the bilateral common femoral arteries. The right common femoral artery was the n cannulated with a micro access needle under ultrasound guidance and a guidewire was advanced into the iliac artery under fluoroscopic guidance and images were recorded. The needle was then removed and the microcatheter was placed. A Bentson wire was then passed into the infrarenal aorta under fl uoroscopic guidance followed by a 6-Greenlandic sheath over the wire. The sheath was then appropriately flushed with heparinized saline solution. The same steps were the n performed for the left common femoral artery and once we had appropriately flushed the 6-Greenlandic sh eath in the left common femoral artery using a Glidewire and a guiding catheter, we were able to ilana ect the left common femoral artery which was challenging as the patient had mural thrombus in that a anastasiya, and we were able to pass the guiding catheter into the infrarenal aorta. At this point, the wi re was exchanged with an Amplatz stiff wire. Once this was performed, we went ahead and used a ProG lide closure device to be placed in our puncture site prior to advancement to a 12-Greenlandic sheath. O nce this was performed, we went ahead and exchanged our sheath and our access to a 12-Greenlandic sheath. The sheath was then flushed with heparinized saline solution. At this point, using a marker Omnif lush catheter, we went ahead and performed an aortoiliac angiogram with bilateral lower extremity ru noff from our right common femoral artery access. Upon the intervention, the areas of the left comm on iliac artery, external iliac artery, internal iliac arteries were all marked on our screen. Usin g our stent graft measuring 12 x 14 cm endoprosthesis limb, we went ahead and relined the left commo n iliac artery from the flow divider of our EVAR down to the external iliac artery. Once this was p erformed, we went ahead and performed a balloon angioplasty of the distal segment where the external iliac artery and internal iliac artery had significant stenosis on the preoperative angiogram. Upo n the completion of that, we went ahead and placed an additional extension of the limb using a 10 x 7 cm [place] endoprosthesis. Once that was completed, we went ahead and performed a completion angiogram, which identified having adequate flow from the common iliac artery into the left lower extremity. At this point, using our ProGlide closure device, the left groin was appropriately closed and hemostasis was identified. Th e groin was soft and using Angio-Seal closure device we did the same percutaneous closure for the [facility] common femoral artery puncture site. The patient tolerated procedure well and was taken to the postanesthesia care unit in stable condition. All instrument, sponge, needle counts and catheters a nd wires were correct x2. Doan catheter was also removed at the end of our procedure. Dictated By: HELADIO OCASIO/VANDANA Conf#: [id number] DID#: [id number] CC: WALLY SMILEY MD;*EndCC*
[2017-09-28] MEDS ORDERED: OXYCODONE/ACETAMINOPHEN (5/325) TAB ONE (11:51)
[2017-09-28] MEDS ORDERED: morphine 2 MG INJ IV PRN (12:00)
[2017-09-28] MEDS ORDERED: ACETAMINOPHEN 325 MG TAB PO PRN (12:00)
[2017-09-28] MEDS ORDERED: LORAZEPAM 2 MG INJ IV PRN (12:00)
[2017-09-28] MEDS ORDERED: DOCUSATE SODIUM 100 MG CAP PO PRN (12:00)
[2017-09-28] MEDS ORDERED: NACL 0.9% 3 ML SYG IV SCH (12:00)
--- NOTE | 2017-09-28 12:51 | HP ---
DATE OF ADMISSION: 09/28/2017 HISTORY OF PRESENT ILLNESS: The patient is a 62-year-old [place] gentleman with extensive past med ical history including hypertension, hyperlipidemia, peripheral vascular disease, cardiomyopathy, co ronary artery disease status post CABG with double bypass done in 1991, right leg bypass, pacemaker, a left popliteal aneurysm, diabetes mellitus, obesity. The patient with severe peripheral arterial disease status post multiple vascular interventions by Dr. Bentley. The patient was brought to [facility] today and underwent left iliac artery stent and angioplasty for a left common iliac bonny ry aneurysm. Postoperatively, the patient has experienced moderate pain. The patient will be admit william for further evaluation and management. PAST MEDICAL HISTORY: Per HPI. PAST SURGICAL HISTORY: Status post CABG with double bypass in 1991, status post right transmetatars al amputation in 2014, status post dual chamber ICD in February 2016 and ICD change due to defective bat stefano in September of 2017. Status post cardiac angiography in January 2016. FAMILY HISTORY: The patient had a mother with history of cardiac arrhythmia. SOCIAL HISTORY: Patient is a former heavy smoker. The patient quit 10 years ago. The patient uses alcohol occasionally. Denies any illicit drug use. ALLERGIES: NO KNOWN ALLERGIES. PAST SURGICAL HISTORY: Status post appendectomy, status post recent surgery 1988. ALLERGIES: NO KNOWN ALLERGIES. MEDICATIONS ON ADMISSION: The followin. Aspirin. 2. Atorvastatin. 3. Plavix. 4. Avodart. 5. Gabapentin. 4. [place]. 5. Imdur. 6. Lisinopril. 7. Metoprolol. 8. Nitroglycerin. 9. Ranexa. REVIEW OF SYSTEMS: A 12-point review of systems is negative unless what mentioned in the HPI. PHYSICAL ASSESSMENT: GENERAL: Well-developed, obese gentleman, currently is awake, alert, in no acute distress. VITAL SIGNS: Temperature 97.8, pulse is 84, blood pressure 130/65, respiratory rate 16, oxygen satu ration 95% on room air. HEENT: Head is atraumatic, normocephalic. Pupils equal, round, reactive to light and accommodation . Oral mucosa is pink and moist. NECK: Supple, no cervical lymphadenopathy, no thyromegaly. CHEST: Lungs clear bilaterally. There is no rhonchi, wheezes, rales noted. CARDIOVASCULAR: Normal S1, S2. No murmurs, gallops, clicks, rubs noted. Patient has a left chest pacemaker with intact incision. ABDOMEN: Protuberant, soft, nondistended, nontender. Bowel sounds present. There is no guarding, no rebound tenderness. EXTREMITIES: Pulses are palpable. No edema, clubbing, cyanosis. The patient has a left lower extr emity status post surgery with intact surgical incision. Right foot status post transmetatarsal amp utation. SKIN: There is no rash, petechiae noted. NEUROLOGIC: Patient is awake, alert and oriented x3. No focal deficits noted. Motor strength 5/5 in all extremities. LABORATORY DATA PRIOR TO ADMISSION: CBC: White blood cells 8.8, hemoglobin is 12.5, hematocrit 36. 5, platelets 251. Chemistry: Sodium is 139, potassium 4.2, chloride 106, carbon dioxide 24, anion gap 13, calcium 9.4, glucose 138, BUN is 14, creatinine 0.85. ASSESSMENT AND PLAN: 1. Severe peripheral vascular disease with left common iliac artery aneurysm status post left iliac artery stent placement and angioplasty by Dr. Bentley on 09/28/2017. We will continue to follow up surgical recommendations. Monitor pulses an incision site. Continue morphine p.r.n. for pain an d Zofran p.r.n. for nausea. 2. Coronary artery disease status post coronary artery bypass graft. The patient is followed by Dr Jerrell Ibrahim in cardiology consultation. We will resume aspirin and Plavix. 3. Hypertension. We will continue metoprolol. 4. Dyslipidemia. Continue statins. 5. Ischemic cardiomyopathy. 6. ICD for ventricular tachycardia with recent change of ICD and this month. 7. Obesity with a BMI of 43.6. 8. Ischemic cardiomyopathy with ejection fraction of 25%. We will start patient on 2 g sodium, low fat, low cholesterol diet and Pepcid for peptic ulcer disea se prophylaxis and Lovenox for deep venous thrombosis prophylaxis. Further recommendations based on clinical course. Plan of care discussed with Dr. Lugo. Dictated By: NITO SHAHID WET ROLLER for JORDANA LUGO MD SR/NTS Conf#: [id number] DID#: [id number] CC: KARL BENTLEY MD;*EndCC*
--- NOTE | 2017-09-28 13:27 | RADRPT ---
PROCEDURE: X-ray fluoroscopy guidance CLINICAL INDICATION: LT ILIAC AND COMMON ARTERY ANGIOPLASTY AND STENT TECHNIQUE: Fluoroscopic guidance was utilized for intraoperative procedure. COMPARISON: None. FINDINGS: Fluoroscopic guidance was utilized for intraoperative procedure. 21.4 minutes of fluoroscopy time w as utilized for the procedure. x-ray sequences were obtained during the procedure. An aortobi-iliac stent graft is noted with distal fixation in bilateral common iliac arteries. IMPRESSION: X-ray fluoroscopic guidance utilized for intraoperative procedure. An aortobi-iliac stent graft is noted with distal fixation in bilateral common iliac arteries. Please see procedure note details. RPTAT: EE Physician Camilla Date Time Electronically viewed and signed by Physician Camilla on 09/28/2017 13:27 /
[2017-09-28] MEDS ORDERED: POTASSIUM CHLORIDE (SR) 20 MEQ TAB PO STA (18:56)
[2017-09-28] MEDS: HYDROCODONE/APAP (5/325) TAB PO PRN (19:47)
[2017-09-28] MEDS: FAMOTIDINE 20 MG TAB PO SCH (20:34)
[2017-09-28] MEDS: GABAPENTIN 300 MG CAP PO SCH (20:34)
[2017-09-28] MEDS: RANOLAZINE (SR) 500 MG TAB PO SCH (20:35)
[2017-09-28] MEDS ORDERED: ATORVASTATIN 80 MG TAB PO SCH (21:00)
[2017-09-29] VITALS (16 sets, daily range): BP systolic 121–190; BP diastolic 57–89; PULSE 69–133; RESP 18–20
[2017-09-29] MEDS ORDERED: NITROGLYCERIN (SL) 0.4 MG TAB ONE (01:29)
[2017-09-29] MEDS: HYDROCODONE/APAP (5/325) TAB PO PRN (01:30)
[2017-09-29] MEDS ORDERED: NITROGLYCERIN (SL) 0.4 MG TAB SL PRN (02:00)
--- NOTE | 2017-09-29 07:21 | RADRPT ---
Vent Rate: 81 bpm RR Interval: 0 msec NM Interval: 168 msec QRS Duration: 120 msec QT Interval: 386 msec QTC Interval: 448 msec P-R-T [place]: 29 - 46 - 117 degrees Sinus rhythm with occasional premature ventricular complexes Cannot rule out Anterior infarct , age undetermined Abnormal ECG Electronically Signed By: Andrea Triplett [id number]
--- NOTE | 2017-09-29 08:06 | PN ---
Date/Time of Note Date/Time of Note DATE: 09/29/17 TIME: 07:54 Assessment/Plan Lines/Catheters IV Catheter Type (from Nrs): Saline Lock Doan in Place (from Nrs): No Assessment/Plan Chief Complaint/Hosp Course -Infrarenal aortic aneurysm, left common iliac artery aneurysm, bilateral popliteal artery aneurysm, left distal common iliac severe stenosis: -S/P Left common iliac and external iliac artery stent grafting and angioplasty -OOB and ambulate -Checks labs in AM -Have Cardiology evaluate patient prior to discharge as he had recent pacemaker changed - Inventory And Pricing Associate informed -In regards to his bilateral lower extremity bypasses will continue with our vascular surgery surveillance of U/S and PVR as outpt. Recent evaluation were patent -AAA:recent CT angiography demonstrated patent endograft except severe stenosis of the Left common iliac artery and mural thrombus formation -Discussed findings, plan and management with the patient and he understands, time spent is 25minutes -Thank you for allowing us to partake in the care of your patient, please call with any questions Problems: Subjective 24 Hr Interval Summary no new vascular events overnight, he did have some c/o chest Pain which is common with him and he takes nitro for it at home per patients reporting Exam/Review of Systems Vital Signs Vitals Vital Signs Date Time Temp Pulse Resp B/P Pulse Ox O2 Delivery O2 Flow Rate FiO2 09/29/17 07:14 98.5 81 19 137/65 94 09/28/17 14:29 Room Air Intake and Output 09/28/17 09/28/17 09/29/17 15:00 23:00 07:00 Intake Total 800 ml 60 ml 500 ml Output Total 530 ml 150 ml Balance 270 ml -90 ml 500 ml Exam Free Text/Dictation [id number] CTAB S1S2 present soft NTND BS+ truncal obesity RLE: Palpable femoral pulse, palpable graft at the medial knee, motor and sensory intact, cap refill 3 seconds, groin with some ecchymosis LLE: Palpable femoral pulse, palpable graft at the lateral knee, motor and sensory intact, cap refill 3 seconds, groin with some ecchymosis KARL SMILEY MD Sep 29, 2017 08:06
[2017-09-29] MEDS ORDERED: LISINOPRIL 5 MG TAB PO SCH (09:00)
[2017-09-29] MEDS ORDERED: DUTASTERIDE 0.5 MG CAP PO SCH (09:00)
[2017-09-29] MEDS ORDERED: CLOPIDOGREL 75 MG TAB PO SCH (09:00)
[2017-09-29] MEDS ORDERED: METOPROLOL 100 MG TAB PO SCH (09:00)
[2017-09-29] MEDS ORDERED: ISOSORBIDE MONONITRATE(SR)60 MG TAB PO SCH (09:00)
[2017-09-29] MEDS ORDERED: ENOXAPARIN 40 MG/0.4 ML SYG SC SCH (09:00)
[2017-09-29] MEDS ORDERED: ASPIRIN (EC) 81 MG TAB PO SCH (09:00)
[2017-09-29 09:17] LABS: BASOPHILS % 0.1 % (0.0-2.0); HEMOGLOBIN 12.1 g/dl (14.0-18.0); LYMPHOCYTES # 1.8 10^3/ul (0.8-2.9); LYMPHOCYTES % 15.4 % (15.0-51.0); MEAN CORPUSCULAR HEMOGLOBIN 31.1 pg (29.0-33.0); MEAN CORPUSCULAR HGB CONC 33.6 g/dl (32.0-37.0); MEAN CORPUSCULAR VOLUME 92.5 fl (82.0-101.0); MEAN PLATELET VOLUME 10.5 fl (7.4-10.4); MONOCYTE # 1.1 10^3/ul (0.3-0.9); MONOCYTES % 8.8 % (0.0-11.0); NEUTROPHIL # 8.9 10^3/ul (1.6-7.5); NEUTROPHILS % 75.3 % (39.0-77.0); PLATELET COUNT 251 10^3/UL (140-415); RED BLOOD COUNT 3.89 10^6/ul (4.70-6.10); RED CELL DISTRIBUTION WIDTH 13.1 % (11.5-14.5); WHITE BLOOD COUNT 11.9 10^3/ul (4.8-10.8)
[2017-09-29 09:53] LABS: ALBUMIN 3.7 g/dl (3.3-4.9); ALBUMIN/GLOBULIN RATIO 1.15; BILIRUBIN,INDIRECT 0.3 mg/dl (0-1.1); BILIRUBIN,TOTAL 0.3 mg/dl (0.2-1.3); CALCIUM 9.2 mg/dl (8.4-10.2); CREATININE 0.8 mg/dl (0.61-1.24); MAGNESIUM 1.9 mg/dl (1.7-2.5); POTASSIUM 3.6 mmol/L (3.5-5.1); TOTAL PROTEIN 6.9 g/dl (6.1-8.1)
[2017-09-29] MEDS: FAMOTIDINE 20 MG TAB PO SCH (10:16)
[2017-09-29] MEDS: GABAPENTIN 300 MG CAP PO SCH (10:16)
[2017-09-29] MEDS: RANOLAZINE (SR) 500 MG TAB PO SCH (10:17)
--- NOTE | 2017-09-29 16:36 | PN ---
Date/Time of Note Date/Time of Note DATE: 09/29/17 TIME: 16:34 Assessment/Plan VTE Prophylaxis VTE Prophylaxis Intervention: LMWH Lines/Catheters IV C[facility]ter Type [facility]from [facility] [place] [facility] Urinary Cath still in place: No Assessment/Plan Chief Complaint/Hosp Course Pt developed chest pain at night, currently denies pain, awaits cardiology eval , Dr Marshall. D/W Dr Bentley. ASSESSMENT AND PLAN: 1. Severe peripheral vascular disease with left common iliac artery aneurysm status post left iliac artery stent placement and angioplasty by Dr. Bentley on 09/28/2017. Continue to follow up surgical recommendations. Monitor pulses an incision site. Continue morphine p.r.n. for pain and Zofran p.r.n. for nausea. 2. Coronary artery disease status post coronary artery bypass graft. The patient is followed by Dr. Ibrahim in cardiology consultation. Resume aspirin and Plavix. 3. Hypertension. We will continue metoprolol. 4. Dyslipidemia. Continue statins. 5. Ischemic cardiomyopathy. 6. ICD for ventricular tachycardia with recent change of ICD and this month. 7. Obesity with a BMI of 43.6. 8. Ischemic cardiomyopathy with ejection fraction of 25%. Further recommendations based on clinical course. Plan of care discussed with Dr. Mai. Problems: Exam/Review of Systems Vital Signs Vitals Vital Signs Date Time Temp Pulse Resp B/P Pulse Ox O2 Delivery O2 Flow Rate FiO2 09/29/17 16:10 69 09/29/17 15:31 98.0 18 121/62 96 09/28/17 14:29 Room Air Intake and Output 09/28/17 09/28/17 09/29/17 15:00 23:00 07:00 Intake Total 800 ml 60 ml 500 ml Output Total 530 ml 150 ml Balance 270 ml -90 ml 500 ml Exam Constitutional: alert, oriented Neck: supple Respiratory: normal air movement Cardiovascular: nl pulses Gastrointestinal: non-tender, soft Musculoskeletal: nl extremities to inspection Extremities: normal pulses Neurological: nl mental status Results Result Diagram: 09/29/1772109/29/17 0722 Results 24 hrs Laboratory Tests Test 09/29/17 01:59 09/29/17 07:22 Troponin I < 0.012 White Blood Count 11.9 #H Red Blood Count 3.89 L Hemoglobin 12.1 L Hematocrit 36.0 L Mean Corpuscular Volume 92.5 Mean Corpuscular Hemoglobin 31.1 Mean Corpuscular Hemoglobin Concent 33.6 Red Cell Distribution Width 13.1 Platelet Count 251 Mean Platelet Volume 10.5 H Neutrophils % 75.3 Lymphocytes % 15.4 Monocytes % 8.8 Eosinophils % 0.0 Basophils % 0.1 Nucleated Red Blood Cells % 0.0 Neutrophils # 8.9 H Lymphocytes # 1.8 Monocytes # 1.1 H Eosinophils # 0.0 Basophils # 0.0 Nucleated Red Blood Cells # 0.0 Sodium Level 142 Potassium Level 3.6 Chloride Level 102 Carbon Dioxide Level 26 Anion Gap 18 H Blood Urea Nitrogen 10 Creatinine 0.80 Glucose Level 109 Hemoglobin A1c 5.8 Calcium Level 9.2 Magnesium Level 1.9 Total Bilirubin 0.3 Direct Bilirubin 0.00 Indirect Bilirubin 0.3 Aspartate Amino Transf (AST/SGOT) 17 Alanine Aminotransferase (ALT/SGPT) 31 Alkaline Phosphatase 101 Total Protein 6.9 Albumin 3.7 Globulin 3.20 Albumin/Globulin Ratio 1.15 Medications Medications Current Medications Lorazepam (Ativan) 0.5 mg Q6H PRN IV ANXIETY; Start 09/28/17 at 12:00 Acetaminophen (Tylenol Tab) 650 mg Q6H PRN PO PAIN LEVEL 1-3 OR FEVER; Start 09/28/17 at 12:00 Morphine Sulfate (morphine) 2 mg Q4H PRN IV PAIN LEVEL 7-10; Start 09/28/17 at 12:00 Docusate Sodium (Colace) 100 mg Q12H PRN PO CONSTIPATION; Start 09/28/17 at 12 :00 Famotidine (Pepcid) 20 mg Q12 PO Last administered on 09/29/17 10:16; Admin Dose 20 MG; Start 09/28/17 at 21:00 Enoxaparin Sodium (Lovenox) 40 mg DAILY SC Last administered on 09/29/17 10: 25; Admin Dose 40 MG; Start 09/29/17 at 09:00 Acetaminophen/ Hydrocodone Bitart ([place] (5/325)) 1 tab Q4H PRN PO PAIN LEVEL 4 -6 Last administered on 09/29/17 01:30; Admin Dose 1 TAB; Start 09/28/17 at 16:00 Aspirin (Halfprin) 81 mg DAILY PO Last administered on 09/29/17 10:16; Admin Dose 81 MG; Start 09/29/17 at 09:00 Atorvastatin Calcium (Lipitor) 80 mg HS PO Last administered on 09/28/17 20: 34; Admin Dose 80 MG; Start 09/28/17 at 21:00 Clopidogrel Bisulfate (plaVIX) 75 mg DAILY PO Last administered on 09/29/17 10:16; Admin Dose 75 MG; Start 09/29/17 at 09:00 Dutasteride (Avodart) 0.5 mg DAILY PO Last administered on 09/29/17 10:17; Admin Dose 0.5 MG; Start 09/29/17 at 09:00 Gabapentin (Neurontin) 300 mg BID PO Last administered on 09/29/17 10:16; Admin Dose 300 MG; Start 09/28/17 at 21:00 Isosorbide Mononitrate (Imdur) 60 mg DAILY PO Last administered on 09/29/17 10:17; Admin Dose 60 MG; Start 09/29/17 at 09:00 Lisinopril (Zestril) 2.5 mg DAILY PO Last administered on 09/29/17 10:18; Admin Dose 2.5 MG; Start 09/29/17 at 09:00 Metoprolol Tartrate (Lopressor) 100 mg DAILY PO Last administered on 10:18; Admin Dose 100 MG; Start 09/29/17 at 09:00 Ranolazine (Ranexa) 1,000 mg BID PO Last administered on 09/29/17 10:17; Admin Dose 1,000 MG; Start 09/28/17 at 21:00 Nitroglycerin (Nitroglycerin (Sl Tab) 0.4 Mg) 1 tab Q5M PRN SL ANGINA Last administered on 09/29/17 01:40; Admin Dose 1 TAB; Start 09/29/17 at 02:00 NITO SHAHID Sep 29, 2017 16:36
== END 2017-09-29 21:41 | disposition home or self-care (01) ==
LOC: INTOOBSV 05:50 → REC 05:50 → EDSTATUS 07:30 → TEL 15:14
PROVIDERS: ADMIT Student in an Organized Health Care Education/Training Program; ATTEND Internal Medicine
DX: I71.4 Abdominal aortic aneurysm, without rupture (principal); I72.4 Aneurysm of artery of lower extremity; I72.3 Aneurysm of iliac artery; I70.202 Unspecified atherosclerosis of native arteries of extremities, left leg; I25.10 Atherosclerotic heart disease of native coronary artery without angina pectoris; E78.5 Hyperlipidemia, unspecified; I10 Essential (primary) hypertension; Z95.1 Presence of aortocoronary bypass graft; Z89.431 Acquired absence of right foot; Z95.810 Presence of automatic (implantable) cardiac defibrillator; Z87.891 Personal history of nicotine dependence; Z79.82 Long term (current) use of aspirin; Z79.02 Long term (current) use of antithrombotics/antiplatelets; E66.9 Obesity, unspecified; Z68.41 Body mass index [BMI] 40.0-44.9, adult; I25.5 Ischemic cardiomyopathy
CPT/HCPCS: 75630; 80053; 82962; 83036; 83735; 84484; 85025; 86850; 86900; 86901; 93005; 97163; 99217; G0378; J0690; J1100; J1644; J1650; J2250; J2405; J2710; J3010; Q9967